=== PATIENT | female | born 1955 | race Caucasian/White ===

== ENCOUNTER 2016-08-02 18:17 | Emergency (ER) | payer MEDICARE ==
[2016-08-02] MEDS ORDERED: Ketorolac INJ* 30 MG/ML 1 ML VIAL IV PUSH ONE (21:42)
[2016-08-02] MEDS ORDERED: LORazepam INJ* 2 MG/ML 1 ML VIAL IV ONE (21:42)
[2016-08-02] MEDS ORDERED: NS 0.9% 1000 ML* 1,000 ML IV ONE (21:42)
--- NOTE | 2016-08-02 22:46 | ED ---
Tanner Lowe Benjamin, scribed for Emre Kapadia MD on 08/02/16 at 2200 . Complex/Multi-Sys Presentation - HPI Summary HPI Summary: 61yo female who has chronic muscle aches from head to toe is here for pain meds. Pt usually takes narcotics for pain, but ran out since . Pt went to her PCP, but PCP refused to rx anymore. Pt has been taking advil since and states that it is not relieving her pain. - History Of Current Complaint Chief Complaint: EDGeneral Time Seen by Provider: 08/02/16 21:36 Hx Obtained From: Patient Onset/Duration: Gradual Onset, Lasting Days, Still Present Timing: Constant Severity Currently: Moderate Severity Initially: Moderate Location: Pain At: - diffuse whole body - Allergies/Home Medications Allergies/Adverse Reactions: Allergies Allergy/AdvReac Type Severity Reaction Status Date / Time Penicillin V Allergy Severe Hives Verified 06/23/15 13:25 [From Penicillin VK Potassium] PMH/Surg Hx/FS Hx/Imm Hx Endocrine/Hematology History: Reports: Hx Anemia Denies: Hx Diabetes, Hx Thyroid Disease Cardiovascular History: Reports: Hx Hypertension, Hx Syncope, Other Cardiovascular Problems/Disorders - CVA Denies: Hx Pacemaker/ICD Respiratory History: Reports: Hx Asthma, Hx Chronic Obstructive Pulmonary Disease (COPD), Other Respiratory Problems/Disorders - ON CONSTANT O2 2.4 LITERS Denies: Hx Lung Cancer GI History: Reports: Hx Gall Bladder Disease, Hx Gastroesophageal Reflux Disease , Other GI Disorders - colitis Denies: Hx Ulcer History: Reports: Hx Acute Renal Failure - stage III, Hx Chronic Renal Failure - CKD 3, Hx Renal Disease - abnormal gfr fluids encouraged Musculoskeletal History: Reports: Hx Arthritis - NECK, HANDS, Hx Back Problems, Hx Osteoporosis, Hx Scoliosis, Other Musculoskeletal History - discs in neck, had sx Denies: Hx Rheumatoid Arthritis Sensory History: Reports: Hx Contacts or Glasses Denies: Hx Hearing Aid Opthamlomology History: Reports: Hx Contacts or Glasses Neurological History: Reports: Hx Migraine, Other Neuro Impairments/Disorders - 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 2 carpal tunnel releases NATY, 1993, 1999, [facility] [place]. 2 disc surgeries, 1991 and 1992, [facility] c5-c6. Vascular legs surgeries; naty, 1998, , [facility] [place]. gallbladder , 1997, [place], neck. Total Hysterectomy at age 36. arthroscopy left knee , 2009, [facility] [place]. Heart Cath. arthroscopic surgery, knees Hx Anesthesia Reactions: No - Immunization History Date of Tetanus Vaccine: Unknown Infectious Disease History: No Infectious Disease History: Denies: Hx Clostridium Difficile, Hx Hepatitis, Hx Human Immunodeficiency Virus (HIV), Hx of Known/Suspected MRSA, Hx Shingles, Hx Tuberculosis, History Other Infectious Disease, Traveled Outside the [place] in Last 30 Days - Family History Known Family History: Positive: None, Other - No hx of breast cancer Family History: NON CONTRIBUTORY - Social History Occupation: Disabled Lives: With Family Alcohol Use: None Substance Use Type: Reports: None Smoking Status (MU): Former Smoker Type: Cigarettes Amount Used/How Often: 33 years Length of Time of Smoking/Using Tobacco: quit 9 years ago Have You Smoked in the Last Year: No Review of Systems Constitutional: Negative Eyes: Negative ENT: Negative Cardiovascular: Negative Respiratory: Negative Gastrointestinal: Negative Genitourinary: Negative Positive: Myalgia - chronic pain Skin: Negative Neurological: Negative Psychological: Normal All Other Systems Reviewed And Are Negative: Yes Physical Exam Triage Information Reviewed: Yes Vital Signs On Initial Exam: Initial Vitals Temp Pulse Resp BP Pulse Ox 98.7 F 109 20 149/107 100 08/02/16 18:20 08/02/16 18:20 08/02/16 18:20 08/02/16 18:20 08/02/16 18:20 Vital Signs Reviewed: Yes Appearance: Positive: Pain Distress - mild discomfort, Thin Skin: Positive: Warm Head/Face: Positive: Normal Head/Face Inspection Eyes: Positive: LEO ENT: Positive: Hearing grossly normal Neck: Positive: Supple Respiratory/Lung Sounds: Positive: Clear to Auscultation, Breath Sounds Present Cardiovascular: Positive: RRR Abdomen Description: Positive: Nontender, Soft Bowel Sounds: Positive: Present Musculoskeletal: Positive: Strength/ROM Intact Neurological: Positive: Sensory/Motor Intact, Alert, Oriented to Person Place, Time Psychiatric: Positive: Affect/Mood Appropriate Diagnostics - Vital Signs Vital Signs Temp Pulse Resp BP Pulse Ox 08/02/16 20:23 98.7 F 98 18 138/83 100 08/02/16 18:24 98.1 F 102 20 149/107 97 08/02/16 18:20 98.7 F 109 20 149/107 100 - Laboratory Result Diagrams: 08/02/16 23:15 08/02/16 23:15 Lab Statement: Any lab studies that have been ordered have been reviewed, and results considered in the medical decision making process. Re-Evaluation - Re-Evaluation First Eval Change: Improved - explained to pt will medicate tonight, d/c pt with 2 percocet , pt needs to f/u with pcp in am Complex Multi-Symp Course/Dx - Diagnoses Provider Diagnoses: Chronic pain Discharge - Discharge Plan Condition: Stable Disposition: HOME Patient Education Materials: Chronic Pain (ED) Referrals: Sheridan Aquino MD [Primary Care Provider] - The documentation as recorded by the Tanner paulino Benjamin accurately reflects the service I personally performed and the decisions made by Steffi anand David, MD.
[2016-08-02 23:32] LABS: Hematocrit 33 % (35-47); Hemoglobin 11.3 g/dl (12.0-16.0); Mean Corpuscular HGB Conc 34 g/dl (31-36); Mean Corpuscular Hemoglobin 31 pg (27-31); Mean Corpuscular Volume 90 fL (80-97); Mean Platelet Volume 8 um3 (7.4-10.4); Red Blood Count 3.66 10^6/ul (4.0-5.4); Red Cell Distribution Width 13 % (10.5-15); White Blood Count 6.1 10^3/ul (3.5-10.8)
[2016-08-02 23:43] LABS: Albumin 4.3 g/dL (3.2-5.2); BUN/Creatinine Ratio 13.4 (8-20); Calcium 9.2 mg/dL (8.6-10.3); EGFR African American 55.2 (>60); EGFR Non-African American 42.9 (>60); Globulin 2.5 g/dL (2-4); Magnesium 1.8 mg/dL (1.9-2.7); Potassium 3.4 mmol/L (3.5-5.0); Total Bilirubin 0.6 mg/dL (0.2-1.0); Total Protein 6.8 g/dL (6.4-8.9)
[2016-08-02] MEDS ORDERED: HYDROmorphone* 1 MG/ML 1 ML SYR IV SLOW PU ONE (23:43)
[2016-08-02] MEDS ORDERED: oxyCODONE/Acetamin 5/325 MG* TAB PO ONE (23:44)
[2016-08-03 00:21] LABS: TSH (Thyroid Stimulating Horm) 1.49 mcIU/mL (0.34-5.60)
[2016-08-03 01:21] VITALS: BP 120/90
== END 2016-08-03 00:30 | disposition home or self-care (01) ==
LOC: ED 18:17
DX: M79.1 Myalgia (principal); G89.29 Other chronic pain; I12.9 Hypertensive chronic kidney disease with stage 1 through stage 4 chronic kidney disease, or unspecified chronic kidney disease; N18.3 Chronic kidney disease, stage 3 (moderate); Z88.0 Allergy status to penicillin; J44.9 Chronic obstructive pulmonary disease, unspecified; Z87.891 Personal history of nicotine dependence
CPT/HCPCS: 36415; 80053; 82550; 83605; 83735; 84443; 85025; 93005; 96360; 96374; 96375; 99283; A9270-GY; J1170; J1885; J2060

== ENCOUNTER → 2016-08-08 09:16 | Emergency (ER) | payer MEDICARE, OTHER ==
[~2016-08-08 09:16] MED LIST: Ketorolac INJ* 60 MG/2 ML VIAL IM ONE; LORazepam TAB(*) 1 MG PO ONE
--- NOTE | 2016-08-08 10:32 | ED ---
Back Pain - HPI Summary HPI Summary: Patient presents with an exacerbation of her chronic back pain that her PCP refused to give her narcotics for and then discharged her from the practice. She previously used oxycontin and fentanyl. She has not obtained a new PCP nor been in contact with a pain clinic. She was seen at this ED on 08/02 and discharged with 2 percocet, which she just used. She denies new injury, change in symptoms or incontinence of urine or stool. - History of Current Complaint Chief Complaint: EDBackInjuryPain Stated Complaint: BACK PAIN Time Seen by Provider: 08/08/16 10:02 Hx Obtained From: Patient Onset/Duration: Gradual Onset, Lasting Weeks, Still Present Onset/Duration: Traumatic - hurt her back in 2000, Still Present Timing: Intermittent, Lasting Days Severity Initially: Severe Severity Currently: Severe Pain Intensity: 10 Character: Sharp, Aching Aggravating Symptom(s): Movement Alleviating Symptom(s): Nothing Associated Signs And Symptoms: Positive: Pain with Weight Bearing Related History: Previous Back Injury - Allergies/Home Medications Allergies/Adverse Reactions: Allergies Allergy/AdvReac Type Severity Reaction Status Date / Time Penicillin V Allergy Severe Hives Verified 06/23/15 13:25 [From Penicillin VK Potassium] PMH/Surg Hx/FS Hx/Imm Hx Endocrine/Hematology History: Reports: Hx Anemia Denies: Hx Diabetes, Hx Thyroid Disease Cardiovascular History: Reports: Hx Hypertension, Hx Syncope, Other Cardiovascular Problems/Disorders - CVA Denies: Hx Pacemaker/ICD Respiratory History: Reports: Hx Asthma, Hx Chronic Obstructive Pulmonary Disease (COPD), Other Respiratory Problems/Disorders - ON CONSTANT O2 2.4 LITERS Denies: Hx Lung Cancer GI History: Reports: Hx Gall Bladder Disease, Hx Gastroesophageal Reflux Disease , Other GI Disorders - colitis Denies: Hx Ulcer History: Reports: Hx Acute Renal Failure - stage III, Hx Chronic Renal Failure - CKD 3, Hx Renal Disease - abnormal gfr fluids encouraged Musculoskeletal History: Reports: Hx Arthritis - NECK, HANDS, Hx Back Problems, Hx Osteoporosis, Hx Scoliosis, Other Musculoskeletal History - discs in neck, had sx Denies: Hx Rheumatoid Arthritis Sensory History: Reports: Hx Contacts or Glasses Denies: Hx Hearing Aid Opthamlomology History: Reports: Hx Contacts or Glasses Neurological History: Reports: Hx Migraine, Other Neuro Impairments/Disorders - 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 2 carpal tunnel releases NATY, 1993, 1999, [facility] [place]. 2 disc surgeries, 1991 and 1992, [facility] c5-c6. Vascular legs surgeries; anty, 1998, , [facility] [place]. gallbladder , 1997, [place], neck. Total Hysterectomy at age 36. arthroscopy left knee , 2009, [facility] [place]. Heart Cath. arthroscopic surgery, knees Hx Anesthesia Reactions: No - Immunization History Date of Tetanus Vaccine: Unknown Infectious Disease History: Denies: Hx Clostridium Difficile, Hx Hepatitis, Hx Human Immunodeficiency Virus (HIV), Hx of Known/Suspected MRSA, Hx Shingles, Hx Tuberculosis, History Other Infectious Disease, Traveled Outside the [place] in Last 30 Days - Family History Known Family History: Positive: None, Other - No hx of breast cancer Family History: NON CONTRIBUTORY - Social History Occupation: Unemployed Lives: With Family Alcohol Use: None Substance Use Type: Reports: None Substance Use Comment - Amount & Last Used: Fentanyl patch and oxycodone Smoking Status (MU): Former Smoker Type: Cigarettes Amount Used/How Often: 33 years Length of Time of Smoking/Using Tobacco: quit 9 years ago Have You Smoked in the Last Year: No Review of Systems Negative: Fever, Chills Positive: Myalgia. Negative: Decreased ROM, Edema Negative: Weakness, Paresthesia, Numbness All Other Systems Reviewed And Are Negative: Yes Physical Exam Triage Information Reviewed: Yes Vital Signs On Initial Exam: Initial Vitals Pulse Resp BP Pulse Ox 57 20 121/93 97 08/08/16 09:17 08/08/16 09:17 08/08/16 09:17 08/08/16 09:17 Vital Signs Reviewed: Yes Appearance: Positive: Well-Appearing, Well-Nourished, Pain Distress Skin: Positive: Warm, Skin Color Reflects Adequate Perfusion, Dry, Soft Head/Face: Positive: Normal Head/Face Inspection Eyes: Positive: EOMI, LEO, Conjunctiva Clear ENT: Positive: Hearing grossly normal Respiratory/Lung Sounds: Positive: Breath Sounds Present Cardiovascular: Positive: RRR Musculoskeletal: Positive: Limited @ - +SLR bilaterally, Pain @ - TTP bilateral SI joints Neurological: Positive: Sensory/Motor Intact, Alert, Oriented to Person Place, Time, NV Bundle Intact Distally, Abnormal Gait Psychiatric: Positive: Affect/Mood Appropriate AVPU Assessment: Alert Diagnostics - Vital Signs Vital Signs Pulse Resp BP Pulse Ox 08/08/16 09:17 57 20 121/93 97 - Laboratory Lab Statement: Any lab studies that have been ordered have been reviewed, and results considered in the medical decision making process. Back Pain Course/Dx - Diagnoses Differential Diagnosis/HQI/PQRI: Positive: Arthritis, Cauda Equina Syndrome, Fracture, Herniated Disc, Strain, Sprain Provider Diagnoses: Acute exacerbation of chronic low back pain Discharge - Discharge Plan Condition: Stable Disposition: HOME Patient Education Materials: Chronic Back Pain (ED), Lower Back Exercises (ED) Referrals: Sheridan Aquino MD [Primary Care Provider] - [facility] [place] [facility]ICIAN REFERRAL [Outside] Additional Instructions: Please call the number provided to establish care with a new provider. Continue using ibuprofen and/or Tylenol with heat or ice for pain. Continue to try to contact the pain clinic for further management of your chronic pain.
[2016-08-08 11:06] VITALS: BP 121/87
== END | disposition home or self-care (01) ==
LOC: ED 09:16
DX: M54.5 Low back pain (principal); G89.29 Other chronic pain; Z87.891 Personal history of nicotine dependence; J44.9 Chronic obstructive pulmonary disease, unspecified; Z88.0 Allergy status to penicillin; I12.9 Hypertensive chronic kidney disease with stage 1 through stage 4 chronic kidney disease, or unspecified chronic kidney disease; N18.3 Chronic kidney disease, stage 3 (moderate)
CPT/HCPCS: 99282; A9270-GY; J1885

== ENCOUNTER 2016-08-12 17:10 | Inpatient (IN) | payer MEDICARE ==
[2016-08-12] MEDS ORDERED: NS 0.9% 1000 ML* 1,000 ML IV ONE (17:45)
[2016-08-12 18:08] LABS: Hematocrit 34 % (35-47); Hemoglobin 11.8 g/dl (12.0-16.0); Mean Corpuscular HGB Conc 35 g/dl (31-36); Mean Corpuscular Hemoglobin 31 pg (27-31); Mean Corpuscular Volume 90 fL (80-97); Mean Platelet Volume 8 um3 (7.4-10.4); Red Blood Count 3.81 10^6/ul (4.0-5.4); Red Cell Distribution Width 13 % (10.5-15); White Blood Count 6.6 10^3/ul (3.5-10.8)
[2016-08-12 18:22] LABS: ALT 10 U/L (7-52); AST 19 U/L (13-39); Albumin 4.2 g/dL (3.2-5.2); Alkaline Phosphatase 60 U/L (34-104); Anion Gap 7 mmol/L (2-11); BUN/Creatinine Ratio 12.6 (8-20); Blood Urea Nitrogen 14 mg/dL (6-24); C Reactive Protein < 1.00 mg/L (< 5.00); CO2 Carbon Dioxide 25 mmol/L (22-32); Calcium 9.6 mg/dL (8.6-10.3); Chloride 97 mmol/L (101-111); Creatine Kinase 64 U/L (10-223); EGFR African American 64.5 (>60); EGFR Non-African American 50.1 (>60); Globulin 2.4 g/dL (2-4); Glucose 90 mg/dL (70-100); Lipase 32 U/L (11.0-82.0); Magnesium 1.7 mg/dL (1.9-2.7); Sodium 129 mmol/L (133-145); Total Protein 6.6 g/dL (6.4-8.9)
--- NOTE | 2016-08-12 18:34 | RAD ---
Indication: Facial numbness.. CT of the brain was performed without IV contrast. Comparison is made with previous exam dated July 16, 2015. Ventricular structures are midline. No midline shift is noted. The extra-axial spaces are unremarkable. There is no evidence of intracranial mass or hemorrhage. No other high or low density lesions are identified. Mastoid air cells and paranasal sinuses are unremarkable. IMPRESSION: No intracranial mass or hemorrhage is noted.
[2016-08-12] MEDS ORDERED: Magnesium Sulfate 2 GM IV* 2 GM/50 ML BAG IVPB ONE (18:36)
[2016-08-12 18:42] LABS: Acetaminophen < 15 mcg/mL; Alcohol < 10 mg/dL (<10); Salicylate < 2.50 mg/dL (<30)
--- NOTE | 2016-08-12 18:44 | RAD ---
Indication: Left facial numbness, left arm pain. CT of the cervical spine was obtained in the axial plane. Sagittal and coronal reconstructed images were obtained. Mastoid air cells are unremarkable. Degenerative changes of the atlantoaxial joint is noted. The C1 ring is intact. 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 Lucent areas are noted at the C5 and C6 vertebra of uncertain etiology. There is no evidence of fracture noted. Disc spaces all well-preserved. The lung apices are grossly unremarkable. IMPRESSION: Focal osteopenia in the cervical spine without fracture. Failure of segmentation of C5-C6. Degenerative changes of the atlantoaxial joint is present.
[2016-08-12] MEDS ORDERED: NS 0.9% 1000 ML* 1,000 ML IV SCH (19:45)
[2016-08-12] MEDS ORDERED: Iodixanol* (CONTRAST) 320 MG/ML 100 ML SDV IV ONE (19:54)
[2016-08-12 19:59] LABS: Urine Bilirubin Negative (Negative); Urine Glucose Negative (Negative); Urine Nitrite Negative (Negative)
[2016-08-12 20:12] LABS: Benzodiazepine Urine Screen Presumptive Positive (None Detect)
--- NOTE | 2016-08-12 20:37 | RAD ---
Indication: Left face and arm numbness. Contrast: Administered 80.0 ml of VISAPAQUE 320 mgi/ml CTA of the neck and head was performed after IV contrast administration. Coronal and sagittal reconstructed images were obtained. The origins of the great vessels are unremarkable. No evidence of calcific plaque with stenosis is noted. Aortic arch is otherwise unremarkable. The right and left common carotid arteries demonstrates no intimal wall thickening. No definite evidence of plaque or calcifications are noted at the origins of the internal carotid artery. No evidence of carotid artery dissection is noted. Both vertebral arteries are widely patent. CTA of the head demonstrates normal intracranial carotid arteries with no branch occlusion. Anterior and middle cerebral arteries are unremarkable with no evidence of aneurysmal dilatation or branch occlusion. Basilar artery and posterior cerebral arteries are unremarkable without evidence of branch occlusion or aneurysmal dilatation. IMPRESSION: No evidence of carotid artery dissection or aneurysmal dilatation is noted. Intracranial vessels demonstrates no aneurysmal dilatation or branch occlusion.
[2016-08-12] MEDS ORDERED: Amitriptyline TAB* 25 MG PO PRN (21:03)
[2016-08-12] MEDS ORDERED: Acetaminophen TAB* 325 MG ONE (21:07)
[2016-08-12] MEDS: Acetaminophen TAB* 325 MG PO PRN (21:08)
[2016-08-12] MEDS: Heparin VIAL(*) 5000 UNITS/ML VIAL (FIVE THOUSAND) SUBCUT SCH (22:27)
[2016-08-12] MEDS: Cyclobenzaprine TAB* 10 MG PO PRN (23:17)
[2016-08-13] MEDS: Acetaminophen TAB* 325 MG PO PRN ×2 (03:38→23:20)
--- NOTE | 2016-08-13 04:57 | HP ---
HOSPITAL MEDICINE HISTORY AND PHYSICAL: DATE OF ADMISSION: 08/12/16 PRIMARY CARE PHYSICIAN: None. ATTENDING PHYSICIAN: Dr. Angus Erwin* (dictation provided by Koki Harman NP) CHIEF COMPLAINT: Left-sided facial numbness and arm weakness. HISTORY OF PRESENT ILLNESS: Ms. King Calderon is a 61-year-old female with a past medical history of hypertension; CKD, stage 3; COPD, on 2 L nasal cannula; chronic orthostatic hypotension; chronic pain, who presents today to the hospital with concern for left-sided facial and left upper arm numbness. Ms. King Calderon states that she has had a very harrowing recent 3 weeks. She normally follows with Dr. Aquino for her primary care. She reports that she normally wears a 50 mcg fentanyl patch, but had an old 100 mcg patch, which she had cut into half thinking that that would be appropriate. Per her report, Dr. Aquino saw the fentanyl patch and was concerned that she was using her medications inappropriately. Apparently, at the same time, she has got a letter in the mail from [employer] saying she should be weaned from all narcotics. Dr. Aquino at that time did not feel comfortable continuing to see her as a patient and she is no longer with that practice. She is therefore no longer receiving prescriptions for pain medications. She has been working to try to find a new primary care physician in [facility], but due to this history, she has found that difficult. She states her last narcotic usage was 2 weeks ago. She has had a difficult withdrawal period, as she has been on narcotics since at least 2000. She reports that yesterday, she developed numbness in her left upper arm and shoulder. This morning on awakening, she had numbness in her left face and therefore, decided to come to the emergency room. She denies weakness, vision changes, or speech abnormality. She denies any fevers or chills. She has had nausea. She has had sweating related to her narcotic withdrawal. She has had no chest pain, no shortness of breath. Some diarrhea. She has been eating and drinking well. Her mother has been helping to care for her. In the emergency room, Ms. King Calderon had labs that were unremarkable. She had CT brain, which showed no acute abnormality. She had a cervical spine CT, which showed no acute abnormality. Head CTA, neck was also normal. PAST MEDICAL HISTORY: 1. Hypertension. 2. CKD, stage 3. 3. Hyperlipidemia. 4. COPD, on 2 L nasal cannula. 5. Chronic hyponatremia. 6. Chronic anemia. 7. History of a cardiac arrest. 8. Depression. 9. Chronic pain, currently off narcotics. 10. Chronic orthostatic hypotension. PAST SURGICAL HISTORY: 1. History of 2 neck surgeries in . 2. Laminectomy at C5-C6 and repair of that initial surgery due to complications afterwards. MEDICATIONS: As follows: 1. Acidophilus 100 mg p.o. daily. 2. Aspirin 81 mg p.o. daily. 3. Alprazolam 0.25 mg p.o. b.i.d. 4. Amitriptyline 75 mg oral daily p.r.n. 5. Calcium 600 mg oral daily. 6. Cholecalciferol 5000 units oral daily. 7. CVS Iron 1 tab oral daily. 8. Cyclobenzaprine ER 10 mg t.i.d. p.r.n. 9. Furosemide 40 mg oral daily. 10. Gabapentin 400 mg p.o. t.i.d. 11. Klor-Con 20 mEq daily. 12. Lipitor 20 mg daily. 13. Magnesium 400 mg oral daily. 14. Metoprolol tartrate 75 mg daily. 15. Omeprazole 40 mg daily. 16. Oxygen as needed at 2 L. 17. Plavix 75 mg daily. 18. ProAir as needed. 19. Vitamin B12 one tab oral daily. 20. Vitamin C 1 tab oral b.i.d. ALLERGIES: To PENICILLIN. FAMILY HISTORY: The patient reports her mother is alive and well. She is in the room today. Father related to colon cancer. SOCIAL HISTORY: The patient is a former smoker. She quit about 9 years ago. There is no report of alcohol use or drug use. The patient lives with her son and he would be the healthcare proxy; his name is Jossue Clayton. REVIEW OF SYSTEMS: A 14-point review of systems was completed with Ms. King Calderon and all those not mentioned above were negative. PHYSICAL EXAMINATION GENERAL: Ms. King Calderon is sitting in the bed. She is in no acute distress. She is calm and cooperative with my examination. VITAL SIGNS: Temperature 98, heart rate 92, respiratory rate 19, O2 saturation 99% on room air, blood pressure 153/90. LUNGS: Clear to auscultation bilaterally with no accessory muscle use and good aeration. HEART: S1, S2. No murmur, rub, or gallop, and regular. ABDOMEN: Soft, nontender with bowel sounds positive x4. NEURO: She has a resting tremor, which she states is somewhat worse than usual. She moves all extremities equally. There is no facial asymmetry or focal weakness. Extraocular movements are intact. She has no pronator drift. She reports decreased sensation to the left face. She feels a tightening around her left biceps, but she has good strength on the arm there and with that muscle. Speech is clear. EXTREMITIES: No cyanosis or edema. SKIN: Intact. DIAGNOSTIC STUDIES/LAB DATA: Sodium 129, potassium 4.0, chloride 97, serum bicarbonate 25, BUN 14, creatinine 1.11, glucose 90. CRP less than 1. WBC 6.6 , hemoglobin 11.8, hematocrit 34, and platelet count 247. INR 0.86. Urine shows no evidence of infection. Tox screen is positive for benzodiazepines. CT brain is read as follows: No intracranial mass or hemorrhage is noted. Cervical spine CT is read as follows: Focal osteopenia in the cervical spine without fracture, failure of segmentation of C5-C6, degenerative changes of the atlantoaxial joint is present. Head CT is as follows: No evidence of carotid artery dissection or aneurysmal dilatation is noted. ASSESSMENT AND PLAN: Ms. King Calderon is a 61-year-old female with a significant past medical history for hypertension; chronic kidney disease, stage 3; hyperlipidemia; chronic obstructive pulmonary disease, on 2 L nasal cannula, who presents today to the hospital with concern for left-sided facial and left upper arm numbness. Plans are for admission to the hospital with expected length of stay greater than 2 days for the followin. Left-sided facial weakness: The patient's symptoms are concerning for a cerebrovascular accident. She has had a CTof the brain and CTA of the head and neck, which have been negative. MRI has been ordered, but will not be available until Sunday. In terms of risk factors, the patient does have hypertension and hyperlipidemia as well as history of smoking. She is already on Plavix. If it is determined that she has had a stroke, will likely need to switch to an alternate agent, but we will await the results of MRI and consultation with Neurology. 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 The patient had her last transthoracic echocardiogram in 2016 with no evidence of patent foramen ovale. I do not think this needs to be repeated. 2. Hypertension. Continue metoprolol, furosemide. 3. DVT prophylaxis. With heparin subcu. 4. Chronic obstructive pulmonary disease. Continue home medications. 5. Hyperlipidemia. Continue Lipitor. 6. History of questionable transient ischemic attack. Continue Plavix. 7. History of anxiety. Continue alprazolam. 8. Chronic pain. Continue gabapentin, cyclobenzaprine. 9. Code status is full code. KOKI HARMAN, [place] [id number]/CPS #: [id number] JAQUELIN
--- NOTE | 2016-08-13 05:06 | CONS ---
CC: Dr. Sheridan Aquino NEUROLOGY CONSULT: DATE OF CONSULTATION: 08/12/16 PRIMARY CARE PHYSICIAN: Dr. Sheridan Aquino REQUESTING PROVIDER: Dr. Cisneros in the ED. REASON FOR CONSULT: Left-sided numbness, rule out stroke. HISTORY OF PRESENT ILLNESS: The patient is a 61-year-old right-handed female who presented to the ED with a complaint of feeling numbness in the arm and face since start of early this morning. When the patient shows me the distribution of numbness in the face, it is more in the lower part of her face ( probably along the V2 distribution). The patient had a complaint of feeling "heavy" in the legs in the past few weeks however. The patient denies any other associated symptoms such as weakness. There is no report of diplopia, dysarthria or dysphagia. The patient has been using narcotics since 2000 for her back pain, including fentanyl patch. Eventually, she came off her narcotics, the last dose was about 2 weeks ago; she had some hard withdrawal symptoms, however, they subsided. PAST MEDICAL HISTORY: 1. History of cardiopulmonary arrest in the past. 2. Orthostatic hypotension and syncope. 3. Hypertension. 4. Chronic kidney disease. 5. Hyperlipidemia. 6. COPD. 7. Chronic normocytic anemia. 8. Migraine headaches. 9. Chronic low back pain. 10. Depression. 11. Fibromyalgia. PAST SURGICAL HISTORY: 1. History of cervical and lumbar spine surgery. 2. Cholecystectomy. 3. x2. 4. Hysterectomy. HOME MEDICATIONS: Include: 1. Potassium 20 mEq p.o. daily. 2. Omeprazole 40 mg p.o. daily. 3. Metoprolol 75 mg p.o. at bedtime. 4. Magnesium 400 mg p.o. daily. 5. Gabapentin 400 mg p.o. b.i.d. 6. Furosemide 40 mg p.o. daily. 7. Ferrous sulfate 325 mg p.o. daily. 8. Flexeril 10 mg p.o. t.i.d. 9. Vitamin B12 500 mcg p.o. daily. 10. Plavix 75 mg p.o. daily. 11. Vitamin D 5000 units p.o. daily. 12. Calcium 600 mg p.o. daily. 13. Lipitor 20 mg p.o. daily. 14. Aspirin low dose 81 mg p.o. daily. 15. Vitamin C. 16. Elavil p.r.n. 17. Albuterol. 18. Xanax 0.25 mg p.o. daily. ALLERGIES: PENICILLIN. FAMILY HISTORY: No clear neurological history in the family. Father passed aways of colon cancer. Mother is relatively healthy. SOCIAL HISTORY: Quit smoking about 8 to 9 years ago. No history of alcohol or recreational drug use. Currently, leaves with his son. PHYSICAL EXAMINATION: Blood pressure 153/97, pulse rate 92, respiratory rate 18 , temperature 98.6, O2 sat 100% on room air. The patient is awake, alert, and oriented x3. Lungs are clear to auscultation. Heart has a regular rate and rhythm. Abdomen is soft and nontender. On neurological exam, the patient is awake, alert, and oriented x3. She has a mild orofacial tremor. The speech is fluent, sometimes with some hesitancy, but she says this is her baseline. Pupils are symmetric and reactive to light. Extraocular movements are intact. Face is symmetric. V1 to V3 is intact to light touch and pinprick bilaterally. Strength is 5/5 throughout. There is no pronator drift. On sensory exam, there is decreased sensation to pinprick in the left arm and leg, but not to light touch. Vibration is decreased bilaterally in the lower extremities. Ccykma-vb-ninm is intact on the right side and slightly has action tremor in the left side with no clear dysmetria; however, she says she has some pain in the left arm as well. Rapid alternating movements are intact. Deep tendon reflexes are 2+ in the upper and lower extremities and are symmetric. Babinski sign is negative. LABORATORY DATA: WBC 6.6, hemoglobin 11.8, hematocrit 34, platelets 247. INR 0.86. Sodium 129, chloride 97, creatinine 1.11, magnesium 1.7. IMAGING: CTA of the head, no evidence of carotid artery dissection or aneurysm. Cervical Spine CT: Focal osteopenia in the cervical spine without fracture. 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 Degenerative changes of atlantoaxial joint is present. Brain CT: No intracranial mass or hemorrhage is noted. ASSESSMENT AND PLAN: A 61-year-old female with vascular risk factors, presented with numbness in the left arm and leg and in the lower part of her face. On physical exam, there is decreased sensation to pinprick in the left arm and leg, but not face. Because of this sudden onset of tingling and numbness in the left arm and face, a stroke needs to be ruled out. She is not a candidate for thrombolytic therapy because she is out of the window and even if she was, her NIH stroke scale is 1 and is not a candidate. Continue aspirin. We will obtain an MRI of the brain and CT angiogram of the head and neck along with a echo of the heart. Other differentials, given that distribution of her subjective numbness in the left arm is lower part of the face, along with her arm complaints, is cervical radiculopathy and degenerative changes. [id number]/[facility] #: [id number] JAQUELIN
[2016-08-13] MEDS: Heparin VIAL(*) 5000 UNITS/ML VIAL (FIVE THOUSAND) SUBCUT SCH ×3 (05:14→20:31)
[2016-08-13] MEDS: ALPRAZolam TAB* 0.25 MG PO SCH (08:40)
[2016-08-13] MEDS: Ascorbic Acid TAB* 500 MG PO SCH (08:40)
[2016-08-13] MEDS: Cyclobenzaprine TAB* 10 MG PO PRN ×2 (08:40→20:29)
[2016-08-13] MEDS: Furosemide TAB* 40 MG PO SCH (08:41)
[2016-08-13] MEDS: Cholecalciferol TAB* 1000 UNITS PO SCH (08:41)
[2016-08-13] MEDS: Gabapentin CAP(*) 400 MG PO SCH ×3 (08:41→20:27)
[2016-08-13] MEDS: Aspirin EC Low Dose* 81 MG TAB.EC PO SCH (08:41)
[2016-08-13] MEDS: Cyanocobalamin TAB* 500 MCG PO SCH (08:41)
[2016-08-13] MEDS: Ferrous Sulfate TAB* 325 MG PO SCH (08:41)
[2016-08-13] MEDS: Clopidogrel TAB* 75 MG PO SCH (08:41)
[2016-08-13] MEDS: Potassium Chlor TAB* 20 MEQ TAB.ER PO SCH (08:42)
[2016-08-13] MEDS: Pantoprazole TAB (NF) 40 MG TAB PO SCH (08:42)
[2016-08-13] MEDS: Magnesium Oxide TAB* 400 MG PO SCH (08:42)
[2016-08-13 09:55] LABS: HDL Cholesterol 44.6 mg/dL
--- NOTE | 2016-08-13 11:00 | PN ---
Progress Note - Progress Note SOAP: Neurology progress note Date of service: 08/13/16 Subjective: No acute events overnight. Patient's symptoms have remained unchanged compared to yesterday. Objective: Vital Signs Temp Pulse Resp BP Pulse Ox 98.8 F 106 18 151/92 99 08/13/16 07:29 08/13/16 07:29 08/13/16 08:41 08/13/16 07:29 08/13/16 07:29 Current Medications Acetaminophen (Tylenol Tab*) 650 mg PO Q6H PRN PRN Reason: PAIN Last Admin: 08/13/16 03:38 Dose: 650 mg Alprazolam (Xanax Tab*) 0.25 mg PO DAILY [facility] Last Admin: 08/13/16 08:40 Dose: 0.25 mg Amitriptyline HCl (Elavil Tab*) 75 mg PO BEDTIME PRN PRN Reason: MD DISCRETION Ascorbic Acid (Vitamin C Tab*) 1,000 mg PO DAILY [facility] Last Admin: 08/13/16 08:40 Dose: 1,000 mg Aspirin (Aspirin Ec Low Dose*) 81 mg PO DAILY [facility] Last Admin: 08/13/16 08:41 Dose: 81 mg Atorvastatin Calcium (Lipitor*) 20 mg PO QPM [facility] Cholecalciferol (Vitamin D Tab*) 5,000 units PO DAILY [facility] Last Admin: 08/13/16 08:41 Dose: 5,000 units Clopidogrel Bisulfate (Plavix Tab*) 75 mg PO DAILY [facility] Last Admin: 08/13/16 08:41 Dose: 75 mg Cyanocobalamin (Vitamin B12 Tab*) 500 mcg PO DAILY [facility] Last Admin: 08/13/16 08:41 Dose: 500 mcg Cyclobenzaprine HCl (Flexeril Tab*) 10 mg PO TID PRN PRN Reason: SPASMS Last Admin: 08/13/16 08:40 Dose: 10 mg Ferrous Sulfate (Ferrous Sulfate Tab*) 325 mg PO DAILY [facility] Last Admin: 08/13/16 08:41 Dose: 325 mg Furosemide (Lasix Tab*) 40 mg PO DAILY [facility] Last Admin: 08/13/16 08:41 Dose: 40 mg Gabapentin (Neurontin Cap(*)) 400 mg PO TID [facility] Last Admin: 08/13/16 08:41 Dose: 400 mg Heparin Sodium (Porcine) (Heparin Vial(*)) 5,000 units SUBCUT Q8HR [facility] Last Admin: 08/13/16 05:14 Dose: 5,000 units Magnesium Oxide (Magox 400 Tab*) 400 mg PO DAILY [facility] Last Admin: 08/13/16 08:42 Dose: 400 mg Metoprolol Tartrate (Lopressor Tab*) 75 mg PO BEDTIME [facility] Pantoprazole Sodium (Protonix Tab (Nf)) 80 mg PO DAILY [facility] Last Admin: 08/13/16 08:42 Dose: 80 mg Potassium Chloride (Klor Con Er Tab*) 20 meq PO DAILY [facility] Last Admin: 08/13/16 08:42 Dose: 20 meq Laboratory Results - last 24 hr 08/12/16 08/12/16 08/12/16 18:00 18:00 18:00 WBC 6.6 RBC 3.81 L Hgb 11.8 L Hct 34 L MCV 90 MCH 31 MCHC 35 RDW 13 Plt Count 247 MPV 8 Neut % (Auto) 73.4 Lymph % (Auto) 17.0 L Stafford % (Auto) 5.5 Eos % (Auto) 1.6 Baso % (Auto) 2.5 H Absolute Neuts (auto) 4.8 Absolute Lymphs (auto) 1.1 Absolute Monos (auto) 0.4 Absolute Eos (auto) 0.1 Absolute Basos (auto) 0.2 Absolute Nucleated RBC 0 Nucleated RBC % 0 INR (Anticoag Therapy) 0.86 L APTT 28.9 Sodium 129 L Potassium 4.0 Chloride 97 L Carbon Dioxide 25 Anion Gap 7 BUN 14 Creatinine 1.11 H Est GFR ( Amer) 64.5 Est GFR (Non-Af Amer) 50.1 BUN/Creatinine Ratio 12.6 Glucose 90 Lactic Acid Calcium 9.6 Magnesium 1.7 L Total Bilirubin 0.50 AST 19 ALT 10 Alkaline Phosphatase 60 Total Creatine Kinase 64 CK-MB (CK-2) 1.2 C-Reactive Protein < 1.00 Total Protein 6.6 Albumin 4.2 Globulin 2.4 Albumin/Globulin Ratio 1.8 Triglycerides Cholesterol LDL Cholesterol HDL Cholesterol Lipase 32 Urine Color Urine Appearance Urine pH Ur Specific [place] Urine Protein Urine Ketones Urine Blood Urine Nitrate Urine Bilirubin Urine Urobilinogen Ur Leukocyte Esterase Urine Glucose Urine Ascorbic Acid Salicylates < 2.50 Urine Opiates Screen Acetaminophen < 15 Ur Barbiturates Screen Ur Phencyclidine Scrn Ur Amphetamines Screen U Benzodiazepines Scrn Urine Cocaine Screen U Cannabinoids Screen Serum Alcohol < 10 08/12/16 08/12/16 08/12/16 18:00 19:46 19:46 WBC RBC Hgb Hct MCV MCH MCHC RDW Plt Count MPV Neut % (Auto) Lymph % (Auto) Stafford % (Auto) Eos % (Auto) Baso % (Auto) Absolute Neuts (auto) Absolute Lymphs (auto) Absolute Monos (auto) Absolute Eos (auto) Absolute Basos (auto) Absolute Nucleated RBC Nucleated RBC % INR (Anticoag Therapy) APTT Sodium Potassium Chloride Carbon Dioxide Anion Gap BUN Creatinine Est GFR ( Amer) Est GFR (Non-Af Amer) BUN/Creatinine Ratio Glucose Lactic Acid 0.5 Calcium Magnesium Total Bilirubin AST ALT Alkaline Phosphatase Total Creatine Kinase CK-MB (CK-2) C-Reactive Protein Total Protein Albumin Globulin Albumin/Globulin Ratio Triglycerides Cholesterol LDL Cholesterol HDL Cholesterol Lipase Urine Color Straw Urine Appearance Clear Urine pH 7.0 Ur Specific [place] 1.008 L Urine Protein Negative Urine Ketones Negative Urine Blood Negative Urine Nitrate Negative Urine Bilirubin Negative Urine Urobilinogen Negative Ur Leukocyte Esterase Negative Urine Glucose Negative Urine Ascorbic Acid * H Salicylates Urine Opiates Screen None detected Acetaminophen Ur Barbiturates Screen None detected Ur Phencyclidine Scrn None detected Ur Amphetamines Screen None detected U Benzodiazepines Scrn Presumptive positive H Urine Cocaine Screen None detected U Cannabinoids Screen None detected Serum Alcohol 08/13/16 07:48 WBC RBC Hgb Hct MCV MCH MCHC RDW Plt Count MPV Neut % (Auto) Lymph % (Auto) [place] % (Auto) Eos % (Auto) Baso % (Auto) Absolute Neuts (auto) Absolute Lymphs (auto) Absolute Monos (auto) Absolute Eos (auto) Absolute Basos (auto) Absolute Nucleated RBC Nucleated RBC % INR (Anticoag Therapy) APTT Sodium Potassium Chloride Carbon Dioxide Anion Gap BUN Creatinine Est GFR ( Amer) Est GFR (Non-Af Amer) BUN/Creatinine Ratio Glucose Lactic Acid Calcium Magnesium Total Bilirubin AST ALT Alkaline Phosphatase Total Creatine Kinase CK-MB (CK-2) C-Reactive Protein Total Protein Albumin Globulin Albumin/Globulin Ratio Triglycerides 150 Cholesterol 187 LDL Cholesterol 112 HDL Cholesterol 44.6 Lipase Urine Color Urine Appearance Urine pH Ur Specific [place] Urine Protein Urine Ketones Urine Blood Urine Nitrate Urine Bilirubin Urine Urobilinogen Ur Leukocyte Esterase Urine Glucose Urine Ascorbic Acid Salicylates Urine Opiates Screen Acetaminophen Ur Barbiturates Screen Ur Phencyclidine Scrn Ur Amphetamines Screen U Benzodiazepines Scrn Urine Cocaine Screen U Cannabinoids Screen Serum Alcohol Exam is unchanged, with some decreased sensation to pinprick in the left arm and leg, but not face. Otherwise, no other focal neurological finding. Assessment and Plan: 61-year-old female, presented with acute numbness (and pain) of the left arm, face and leg. Stroke workup in progress; awaiting MRI, although the symptoms also could be related to radiculopathy and degenerative changes in the cervical spine. Continue ASA.
--- NOTE | 2016-08-13 11:06 | PN ---
Subjective Date of Service: 08/13/16 Interval History: Ms King Calderon continues to reports some intermittent sensations of numbness of her left face, neck, and upper arm. She also reports tingling in her lips. She denies other complaint including nausea, abdominal pain, chest pain, or SOB. Objective Active Medications: Acetaminophen (Tylenol Tab*) 650 mg PO Q6H PRN Alprazolam (Xanax Tab*) 0.25 mg PO DAILY [facility] Amitriptyline HCl (Elavil Tab*) 75 mg PO BEDTIME PRN Ascorbic Acid (Vitamin C Tab*) 1,000 mg PO DAILY [facility] Aspirin (Aspirin Ec Low Dose*) 81 mg PO DAILY [facility] Atorvastatin Calcium (Lipitor*) 20 mg PO QPM [facility] Cholecalciferol (Vitamin D Tab*) 5,000 units PO DAILY [facility] Clopidogrel Bisulfate (Plavix Tab*) 75 mg PO DAILY [facility] Cyanocobalamin (Vitamin B12 Tab*) 500 mcg PO DAILY [facility] Cyclobenzaprine HCl (Flexeril Tab*) 10 mg PO TID PRN Ferrous Sulfate (Ferrous Sulfate Tab*) 325 mg PO DAILY [facility] Furosemide (Lasix Tab*) 40 mg PO DAILY [facility] Gabapentin (Neurontin Cap(*)) 400 mg PO TID [facility] Heparin Sodium (Porcine) (Heparin Vial(*)) 5,000 units SUBCUT Q8HR [facility] Magnesium Oxide (Magox 400 Tab*) 400 mg PO DAILY [facility] Metoprolol Tartrate (Lopressor Tab*) 75 mg PO BEDTIME [facility] Pantoprazole Sodium (Protonix Tab (Nf)) 80 mg PO DAILY [facility] Potassium Chloride (Klor Con Er Tab*) 20 meq PO DAILY [facility] Vital Signs 08/12/16 08/12/16 08/13/16 21:44 23:17 00:27 Temperature 98.6 F 98.4 F Pulse Rate 92 95 Respiratory 18 16 20 Rate Blood Pressure 153/97 139/68 (mmHg) O2 Sat by Pulse 100 99 Oximetry 08/13/16 08/13/16 08/13/16 01:17 03:47 07:21 Temperature 97.7 F Pulse Rate 93 Respiratory 18 20 16 Rate Blood Pressure 158/85 (mmHg) O2 Sat by Pulse 100 Oximetry 08/13/16 08/13/16 08/13/16 07:29 08:40 08:41 Temperature 98.8 F Pulse Rate 106 Respiratory 18 18 Rate Blood Pressure 151/92 (mmHg) O2 Sat by Pulse 99 Oximetry Oxygen Devices in Use Now: None Appearance: Female lying in bed in NAD Eyes: No Scleral Icterus Ears/Nose/Mouth/Throat: Mucous Membranes Moist Neck: NL Appearance and Movements; NL JVP Respiratory: Symmetrical Chest Expansion and Respiratory Effort, Clear to Auscultation Cardiovascular: NL Sounds; No Murmurs; No JVD, No Edema Abdominal: NL Sounds; No Tenderness; No Distention Lymphatic: No Cervical Adenopathy Extremities: No Edema Skin: No Rash or Ulcers Neurological: Alert and Oriented x 3, NL Muscle Strength and Tone, - - decreased sensation to left neck only Nutrition: Taking PO's Result Diagrams: 08/12/16 18:00 08/12/16 18:00 Assess/Plan/Problems-Billing Assessment: Ms. King Calderon is a 61 yo female with a PMH of chronic pain recently taken off all narcotics, htn, COPD on 2L NC, who was admitted on 08/12/16 with concern for left sided face and arm numbness. - Patient Problems (1) Left sided numbness Comment: Intermittent L sided face, neck, and upper arm numbness. CT brain and cervical spine negative. Appreciate consulation from Dr. Salcedo. Recommends MRI head and c spine. Patient had recent echo back in 2016 without evidence of PFO, no indication for repeat at this time. ? if some of symptoms are related anxiety, especially with circumoral tingling. (2) CVA (cerebral vascular accident) Comment: Patient reports question of CVA over 10 years ago, though not confirmed on imaging per patient report. Continue plavix and aspirin. (3) CKD (chronic kidney disease) Comment: Stage 3. At baseline. (4) Chronic pain Comment: Patient had issue with Dr. Aquino with concern for inappropriate use of narcotics. In addition, workmen's comp had stated she needed to be weaned from all narcotics. Patient no longer patient of Dr. Aquino, all narcotics discontinued, last narcotics 2 weeks ago. Continue flexeril, gabapentin, and amitriptyline. (5) HTN (hypertension) Comment: BP is stable. Continue metoprolol and furosemide. (6) COPD (chronic obstructive pulmonary disease) Comment: Stable-no signs of exacerbation. Continue supplemental O2. (7) GERD (gastroesophageal reflux disease) Comment: Continue pantoprazole. (8) HLD (hyperlipidemia) Comment: Continue lipitor. (9) DVT prophylaxis Comment: SQ heparin (10) Full code status Status and Disposition: Inpatient with need for > 48 hour stay with need for MRI tomorrow. Anticipate discharge to home in AM.
[2016-08-13] MEDS ORDERED: Ondansetron INJ* 2 MG/ML VIAL IV PRN (12:57)
[2016-08-13] MEDS ORDERED: Ondansetron INJ* 2 MG/ML VIAL ONE (13:05)
[2016-08-13] MEDS: Atorvastatin* 20 MG TAB PO SCH (17:09)
[2016-08-13] MEDS: Metoprolol Tartrate TAB* 25 MG PO SCH (20:28)
[2016-08-14] MEDS: Heparin VIAL(*) 5000 UNITS/ML VIAL (FIVE THOUSAND) SUBCUT SCH ×3 (05:35→21:26)
[2016-08-14] MEDS: Cyclobenzaprine TAB* 10 MG PO PRN ×2 (05:40→18:16)
[2016-08-14] MEDS: Cholecalciferol TAB* 1000 UNITS PO SCH (08:24)
[2016-08-14] MEDS: Cyanocobalamin TAB* 500 MCG PO SCH (08:24)
[2016-08-14] MEDS: Aspirin EC Low Dose* 81 MG TAB.EC PO SCH (08:25)
[2016-08-14] MEDS: Clopidogrel TAB* 75 MG PO SCH (08:25)
[2016-08-14] MEDS: Potassium Chlor TAB* 20 MEQ TAB.ER PO SCH (08:25)
[2016-08-14] MEDS: Magnesium Oxide TAB* 400 MG PO SCH (08:25)
[2016-08-14] MEDS: Ascorbic Acid TAB* 500 MG PO SCH (08:25)
[2016-08-14] MEDS: Gabapentin CAP(*) 400 MG PO SCH ×3 (08:26→21:26)
[2016-08-14] MEDS: Furosemide TAB* 40 MG PO SCH (08:26)
[2016-08-14] MEDS: Ferrous Sulfate TAB* 325 MG PO SCH (08:26)
[2016-08-14] MEDS: ALPRAZolam TAB* 0.25 MG PO SCH (08:28)
--- NOTE | 2016-08-14 11:01 | RAD ---
HISTORY: Left-sided face and arm numbness, weakness COMPARISONS: April 22, 2014 TECHNIQUE: The following sequences were obtained of the head: Sagittal T1-weighted images, axial T2-weighted images, axial FLAIR images, axial susceptibility weighted images, axial T1-weighted images. Additionally, axial diffusion-weighted images were obtained with calculated apparent diffusion coefficients. FINDINGS: HEMORRHAGE/INFARCT: There is no hemorrhage or acute infarct. MASSES/SHIFT: There is no mass or shift. EXTRA-AXIAL SPACES/MENINGES: There are no extra-axial fluid collections. SULCI AND VENTRICLES: The sulci and ventricles are normal in size and position for the patient's stated age. CEREBRUM: There are few, scattered small foci of elevated T2/FLAIR signal within the periventricular and subcortical white matter. BRAINSTEM: There are no focal parenchymal abnormalities. CEREBELLUM: There are no focal parenchymal abnormalities. The cerebellar tonsils are normal in size and position. SELLA: The sella is normal. PINEAL: The pineal region is clear. CP ANGLE/TEMPORAL BONES: The labyrinthine structures are grossly normal. VESSELS: Normal flow-voids are noted within the visualized vertebral vasculature. DIFFUSION ABNORMALITIES: There are no diffusion abnormalities. PARANASAL SINUSES/MASTOIDS: The paranasal sinuses are clear. ORBITS: The orbits are unremarkable. BONES AND SOFT TISSUE: No bone or soft tissue abnormalities are noted. OTHER: None IMPRESSION: FEW, SCATTERED NONSPECIFIC WHITE MATTER CHANGES. NO RESTRICTED DIFFUSION TO SUGGEST ACUTE INFARCT.
--- NOTE | 2016-08-14 11:34 | RAD ---
HISTORY: Left-sided face and arm numbness COMPARISONS: None TECHNIQUE: The following sequences were obtained of the cervical spine: Sagittal T1- and T2-weighted images, sagittal STIR images, axial T2 and gradient echo images. FINDINGS: BRAIN AND SPINAL CORD: The visualized spinal cord is normal in caliber, position, and signal intensity. The visualized portion of the brain is unremarkable. The cerebellar tonsils are normal in position. ALIGNMENT: The alignment is normal. VERTEBRAL BODIES: There is fusion of C5 and C6. JOINTS: There is diffuse uncovertebral and facet osteoarthritic change. There is osteoarthritis of the atlantoaxial articulation. MUSCULATURE: Unremarkable INTERVERTEBRAL DISCS: There is diffuse loss of intervertebral disc height and T2 signal throughout the spine. AXIAL IMAGES: C2-C3: There is bilateral uncovertebral facet hypertrophy. There is no significant neural foraminal narrowing or central canal stenosis. C3-C4: There is bilateral uncovertebral and facet hypertrophy. There is moderate to severe left and mild right neural foraminal narrowing. There is no significant central canal stenosis. C4-C5: There is broad-based disc osteophyte complex with bilateral uncovertebral and facet hypertrophy. There is severe bilateral neural foraminal narrowing. There is mild narrowing of the central canal. C5-C6: There is no disc herniation, spinal stenosis, or neuroforaminal narrowing. C6-C7: There is a broad-based disc osteophyte complex with bilateral uncovertebral and facet hypertrophy. There is moderate bilateral neural foraminal narrowing. There is mild narrowing of the central canal. C7-T1: There is bilateral uncovertebral and facet hypertrophy. There is moderate bilateral neural foraminal area. There is no significant central canal stenosis. SOFT TISSUES: The visualized soft tissues of the neck are unremarkable. OTHER: None. IMPRESSION: 1. DEGENERATIVE DISC DISEASE AND OSTEOARTHRITIS. 2. THERE IS MULTILEVEL NEURAL FORAMINAL NARROWING DESCRIBED ABOVE. 3. THERE IS MILD NARROWING OF THE CENTRAL CANAL AT C4-C5 AND C6-C7
[2016-08-14] MEDS: Pantoprazole TAB (NF) 40 MG TAB PO SCH (11:55)
[2016-08-14] MEDS: Acetaminophen TAB* 325 MG PO PRN ×2 (11:55→21:26)
[2016-08-14] MEDS ORDERED: Magnesium Sulfate 2 GM IV* 2 GM/50 ML BAG IVPB ONE (13:41)
--- NOTE | 2016-08-14 14:22 | PN ---
Progress Note - Progress Note SOAP: Neurology progress note Date of service: 08/14/16 Subjective: Patient's symptoms are almost unchanged. She completed her MRI which did not show an acute stroke. Objective: Vital Signs Temp Pulse Resp BP Pulse Ox 98.2 F 69 16 135/65 99 08/14/16 07:14 08/14/16 07:14 08/14/16 12:28 08/14/16 07:14 08/14/16 07:14 Current Medications Acetaminophen (Tylenol Tab*) 650 mg PO Q6H PRN PRN Reason: PAIN Last Admin: 08/14/16 11:55 Dose: 650 mg Alprazolam (Xanax Tab*) 0.25 mg PO DAILY [facility] Last Admin: 08/14/16 08:28 Dose: 0.25 mg Amitriptyline HCl (Elavil Tab*) 75 mg PO BEDTIME PRN PRN Reason: MD LOPEZ Ascorbic Acid (Vitamin C Tab*) 1,000 mg PO DAILY [facility] Last Admin: 08/14/16 08:25 Dose: 1,000 mg Aspirin (Aspirin Ec Low Dose*) 81 mg PO DAILY [facility] Last Admin: 08/14/16 08:25 Dose: 81 mg Atorvastatin Calcium (Lipitor*) 20 mg PO QPM [facility] Last Admin: 08/13/16 17:09 Dose: 20 mg Cholecalciferol (Vitamin D Tab*) 5,000 units PO DAILY [facility] Last Admin: 08/14/16 08:24 Dose: 5,000 units Clopidogrel Bisulfate (Plavix Tab*) 75 mg PO DAILY [facility] Last Admin: 08/14/16 08:25 Dose: 75 mg Cyanocobalamin (Vitamin B12 Tab*) 500 mcg PO DAILY [facility] Last Admin: 08/14/16 08:24 Dose: 500 mcg Cyclobenzaprine HCl (Flexeril Tab*) 10 mg PO TID PRN PRN Reason: SPASMS Last Admin: 08/14/16 05:40 Dose: 10 mg Ferrous Sulfate (Ferrous Sulfate Tab*) 325 mg PO DAILY [facility] Last Admin: 08/14/16 08:26 Dose: 325 mg Furosemide (Lasix Tab*) 40 mg PO DAILY [facility] Last Admin: 08/14/16 08:26 Dose: 40 mg Gabapentin (Neurontin Cap(*)) 400 mg PO TID [facility] Last Admin: 08/14/16 08:26 Dose: 400 mg Heparin Sodium (Porcine) (Heparin Vial(*)) 5,000 units SUBCUT Q8HR [facility] Last Admin: 08/14/16 05:35 Dose: 5,000 units Magnesium Sulfate (Magnesium Sulfate 2 Gm Iv*) 2 gm in 50 mls @ 50 mls/hr IVPB ONCE ONE Stop: 08/14/16 14:40 Magnesium Oxide (Magox 400 Tab*) 400 mg PO DAILY [facility] Last Admin: 08/14/16 08:25 Dose: 400 mg Metoprolol Tartrate (Lopressor Tab*) 75 mg PO BEDTIME [facility] Last Admin: 08/13/16 20:28 Dose: 75 mg Ondansetron HCl (Zofran Inj*) 4 mg IV Q4H PRN PRN Reason: NAUSEA Last Admin: 08/13/16 13:11 Dose: 4 mg Pantoprazole Sodium (Protonix Tab (Nf)) 80 mg PO DAILY [facility] Last Admin: 08/14/16 11:55 Dose: 80 mg Potassium Chloride (Klor Con Er Tab*) 20 meq PO DAILY [facility] Last Admin: 08/14/16 08:25 Dose: 20 meq MRI BRAIN W/O IMPRESSION: FEW, SCATTERED NONSPECIFIC WHITE MATTER CHANGES. NO RESTRICTED DIFFUSION TO SUGGEST ACUTE INFARCT. MRI CERVICAL SPINE WO IMPRESSION: 1. DEGENERATIVE DISC DISEASE AND OSTEOARTHRITIS. 2. THERE IS MULTILEVEL NEURAL FORAMINAL NARROWING DESCRIBED ABOVE. 3. THERE IS MILD NARROWING OF THE CENTRAL CANAL AT C4-C5 AND C6-C7 Assessment and Plan: 61 yo female admitted with numbness of the left arm and lower part of the face and also leg. There is no evidence of acute stroke on the MRI. The symptoms most likely related to the cervical and lumbar degenerative changes. Add a detailed conversation with the patient and her mother. She has been undergoing a large amount of stress recently, due to her partner leaving her and left her with 'nothing' and she had to change her residence. She had a conversation with one of the social workers today regarding her ongoing issues. These are in addition to the physical stress that she went through when her narcotics were stopped a couple of weeks ago. Discussed with the patient the role of non-narcotic pain management medications such as increasing her Gabapentin plus PT and OT. Also avoidance of heavy lifiting and pushing was discussed. From neurological standpoint, the patient can be discharged if cleared by PT. Time spent at bedside at least 25 minutes.
--- NOTE | 2016-08-14 17:04 | PN ---
Subjective Date of Service: 08/14/16 Interval History: This is a 61 yo female with a reported h/o remote CVA, COPD, CKD, chronic pain syndrome, HTN, GERD and HLD who presented with c/o L sided numbness. Neurology has been involved in her care and recommended MRI of the brain and Cspine. Patient reports that her symptoms improved, but are still present. She has numbness in both lower extremities as well as the entire L side of her body with some associated pain that seems to have improved. Patient still feels too weak to go home. Patient cites multiple social stressors that her mother helps to reiterate, patient has meet with social work who initiated VNS and APS referrals. Objective Active Medications: Acetaminophen (Tylenol Tab*) 650 mg PO Q6H PRN PRN Reason: PAIN Last Admin: 08/14/16 11:55 Dose: 650 mg Alprazolam (Xanax Tab*) 0.25 mg PO DAILY [facility] Last Admin: 08/14/16 08:28 Dose: 0.25 mg Amitriptyline HCl (Elavil Tab*) 75 mg PO BEDTIME PRN PRN Reason: MD DISCRETION Ascorbic Acid (Vitamin C Tab*) 1,000 mg PO DAILY [facility] Last Admin: 08/14/16 08:25 Dose: 1,000 mg Aspirin (Aspirin Ec Low Dose*) 81 mg PO DAILY [facility] Last Admin: 08/14/16 08:25 Dose: 81 mg Atorvastatin Calcium (Lipitor*) 20 mg PO QPM [facility] Last Admin: 08/13/16 17:09 Dose: 20 mg Cholecalciferol (Vitamin D Tab*) 5,000 units PO DAILY [facility] Last Admin: 08/14/16 08:24 Dose: 5,000 units Clopidogrel Bisulfate (Plavix Tab*) 75 mg PO DAILY [facility] Last Admin: 08/14/16 08:25 Dose: 75 mg Cyanocobalamin (Vitamin B12 Tab*) 500 mcg PO DAILY [facility] Last Admin: 08/14/16 08:24 Dose: 500 mcg Cyclobenzaprine HCl (Flexeril Tab*) 10 mg PO TID PRN PRN Reason: SPASMS Last Admin: 08/14/16 05:40 Dose: 10 mg Ferrous Sulfate (Ferrous Sulfate Tab*) 325 mg PO DAILY [facility] Last Admin: 08/14/16 08:26 Dose: 325 mg Furosemide (Lasix Tab*) 40 mg PO DAILY [facility] Last Admin: 08/14/16 08:26 Dose: 40 mg Gabapentin (Neurontin Cap(*)) 400 mg PO TID [facility] Last Admin: 08/14/16 14:25 Dose: 400 mg Heparin Sodium (Porcine) (Heparin Vial(*)) 5,000 units SUBCUT Q8HR [facility] Last Admin: 08/14/16 14:24 Dose: 5,000 units Magnesium Oxide (Magox 400 Tab*) 400 mg PO DAILY [facility] Last Admin: 08/14/16 08:25 Dose: 400 mg Metoprolol Tartrate (Lopressor Tab*) 75 mg PO BEDTIME [facility] Last Admin: 08/13/16 20:28 Dose: 75 mg Ondansetron HCl (Zofran Inj*) 4 mg IV Q4H PRN PRN Reason: NAUSEA Last Admin: 08/13/16 13:11 Dose: 4 mg Pantoprazole Sodium (Protonix Tab (Nf)) 80 mg PO DAILY [facility] Last Admin: 08/14/16 11:55 Dose: 80 mg Potassium Chloride (Klor Con Er Tab*) 20 meq PO DAILY [facility] Last Admin: 08/14/16 08:25 Dose: 20 meq Vital Signs: Temp Pulse Resp BP Pulse Ox 98.8 F 90 20 140/90 97 08/14/16 15:49 08/14/16 15:49 08/14/16 15:49 08/14/16 15:49 08/14/16 15:49 Oxygen Devices in Use Now: None Appearance: Middle aged female who appears older than stated age in NAD lying in a recliner accompanied by her mother. Respiratory: Symmetrical Chest Expansion and Respiratory Effort, Clear to Auscultation Cardiovascular: NL Sounds; No Murmurs; No JVD, RRR Abdominal: NL Sounds; No Tenderness; No Distention Extremities: No Edema Skin: No Rash or Ulcers Neurological: Alert and Oriented x 3 Result Diagrams: 08/12/16 18:00 08/12/16 18:00 Diagnostic Imaging: MRI brain - non-specific white matter changes, no acute or subacute infarct MRI Cspine - DDD, multilevel foraminal narrowing with central stenosis Assess/Plan/Problems-Billing Assessment: Ms. King Calderon is a 61 yo female with a PMH of chronic pain recently taken off all narcotics, htn, COPD on 2L NC, who was admitted on 08/12/16 with concern for left sided face and arm numbness. - Patient Problems (1) Left sided numbness Comment: L sided numbness mostly involved L side of neck/jaw and proximal arm but also extending to LLE with some associated pain Initial CT imaging negative MRI brain/C spine show some chronic degenerative changes Degenerative changes in neck and likely L spine may be responsible for pain/ numbness symptoms Appreciate neuro consult Will increase gabapentin and recommend PT (2) Chronic pain Comment: Patient had issue with Dr. Aquino with concern for inappropriate use of narcotics. In addition, workmen's comp had stated she needed to be weaned from all narcotics. Patient no longer patient of Dr. Aquino, all narcotics discontinued, last narcotics 2 weeks ago. Continue flexeril, gabapentin, and amitriptyline. (3) Anxiety and depression Comment: Likely contributing to current acute situation (4) Hypomagnesemia Comment: Cont oral supp and IV replacement (5) COPD (chronic obstructive pulmonary disease) Comment: No associated exacerbation (6) DDD (degenerative disc disease) Comment: Diffuse DDD noted on MRI, likely at least partially responsible for pain/ numbness symptoms (7) Stage III chronic kidney disease Comment: GFR 50 at admission Stable, near baseline (8) HLD (hyperlipidemia) Comment: Continue lipitor. (9) GERD (gastroesophageal reflux disease) (10) DVT prophylaxis Comment: SQ heparin (11) Full code status Status and Disposition: Inpatient. Anticipate dc tomorrow as patient felt too weak today.
[2016-08-14] MEDS: Atorvastatin* 20 MG TAB PO SCH (18:15)
[2016-08-14] MEDS: Metoprolol Tartrate TAB* 25 MG PO SCH (21:26)
[2016-08-15] MEDS: Heparin VIAL(*) 5000 UNITS/ML VIAL (FIVE THOUSAND) SUBCUT SCH (05:35)
[2016-08-15 08:48] VITALS: BP 111/60
[2016-08-15] MEDS: Gabapentin CAP(*) 400 MG PO SCH (09:29)
[2016-08-15] MEDS: Pantoprazole TAB (NF) 40 MG TAB PO SCH (09:29)
[2016-08-15] MEDS: Clopidogrel TAB* 75 MG PO SCH (09:31)
[2016-08-15] MEDS: Cyanocobalamin TAB* 500 MCG PO SCH (09:31)
[2016-08-15] MEDS: Potassium Chlor TAB* 20 MEQ TAB.ER PO SCH (09:31)
[2016-08-15] MEDS: Cyclobenzaprine TAB* 10 MG PO PRN (09:32)
[2016-08-15] MEDS: Aspirin EC Low Dose* 81 MG TAB.EC PO SCH (09:32)
[2016-08-15] MEDS: Cholecalciferol TAB* 1000 UNITS PO SCH (09:32)
[2016-08-15] MEDS: Magnesium Oxide TAB* 400 MG PO SCH (09:32)
[2016-08-15] MEDS: Ferrous Sulfate TAB* 325 MG PO SCH (09:32)
[2016-08-15] MEDS: ALPRAZolam TAB* 0.25 MG PO SCH (09:33)
[2016-08-15] MEDS: Ascorbic Acid TAB* 500 MG PO SCH (09:33)
[2016-08-15] MEDS: Furosemide TAB* 40 MG PO SCH (09:34)
--- NOTE | 2016-08-15 16:03 | DS ---
CC: Dr. Ndiaye * DISCHARGE SUMMARY: DATE OF ADMISSION: 08/12/16 DATE OF DISCHARGE: 08/15/16 PRIMARY CARE PHYSICIAN: To be established; Dr. Ndiaye. CONSULTING NEUROLOGIST: Dr. Salcedo. DISCHARGING PROVIDER: BERTRAND Landrum. SUPERVISING PHYSICIAN: Jhon Guillaume MD.* (DICTATED BY BERTRAND LANDRUM) PRIMARY DISCHARGE DIAGNOSES: 1. Left-sided numbness and pain which is likely radicular from some diffuse degenerative changes in her neck and lumbar spine. 2. Hypomagnesemia - resolved. SECONDARY DISCHARGE DIAGNOSES: 1. Chronic pain. 2. Anxiety and depression. 3. Chronic obstructive pulmonary disease without associated exacerbation. 4. Stage 3 chronic kidney disease without exacerbation. 5. Hyperlipidemia. 6. Gastroesophageal reflux disease. DISCHARGE MEDICATIONS: 1. Xanax 0.25 mg p.o. daily. 2. Albuterol 2 puffs inhaled 4 times daily as needed for shortness of breath. 3. Amitriptyline 75 mg p.o. at bedtime. 4. Vitamin C 1000 mg p.o. daily. 5. Aspirin 81 mg p.o. daily. 6. Atorvastatin 20 mg p.o. daily. 7. Calcium carbonate 600 mg p.o. daily. 8. Vitamin D 5000 units p.o. daily. 9. Plavix 75 mg p.o. daily. 10. Vitamin B12 500 mcg p.o. daily. 11. Flexeril 10 mg p.o. 3 times daily as needed. 12. Ferrous sulfate 325 mg p.o. daily. 13. Lasix 40 mg p.o. daily. 14. Gabapentin 600 mg p.o. 3 times daily. 15. Lactobacillus 100 mg p.o. daily. 16. Magnesium oxide 400 mg p.o. daily. 17. Metoprolol tartrate 75 mg p.o. at bedtime. 18. Omeprazole 40 mg p.o. daily. 19. Potassium chloride 20 mEq daily. MEDICATION CHANGES: Increase gabapentin to 600 mg [address]ITAL IMAGIN. CT of the brain shows no intracranial mass or hemorrhage. 2. Cervical spine CT shows osteopenia of the cervical spine without fracture, degenerative changes at the atlantoaxial joint present. No acute fracture noted. 3. CTA of the head shows no dissection or aneurysmal dilatation. Intracranial vessels demonstrate no occlusion. 4. MRI of the brain shows diffuse scattered nonspecific white matter changes. No restricted diffusion to suggest acute infarct. 5. Cervical spine MRI demonstrates degenerative disk disease and osteoarthritis. There is multilevel neuroforaminal narrowing and mild narrowing of the central canal at C4-5 and C6-7. HOSPITAL COURSE: This is a 61-year-old female with reported prior history of CVA as well as COPD, chronic pain syndrome, stage 3 chronic kidney disease, hypertension, hyperlipidemia and GERD who presented with complaints of left- sided facial numbness and arm weakness. The patient states that her symptoms started the morning prior to admission. Upon awakening, she had numbness in the left face and presented to the emergency department for further evaluation. Patient reported a very stressful preceding 3 weeks, which included a discharge from her primary care provider's office as well as a notification from Workmen's Comp that she needed to wean from all narcotic medications. She also lost her lifetime partner approximately a year ago and is being forced from her home with plans to move the beginning of October. When the patient reached the emergency department, her initial labs were largely unremarkable with a normal CBC. Sodium was mildly low at 129. No other significant electrolyte abnormalities. CRP was negative. Urinalysis was unremarkable and toxicology screen positive only for benzodiazepines, which she is prescribed. Initial imaging of the head and C-spine were unremarkable. Neurology was consulted. Patient underwent MRI of the brain which showed no evidence of acute or subacute infarct. Patient's complaints of pain and numbness improved slightly. Neurology thought that her complaints were likely mediated by the multilevel degenerative changes seen on her MRI and inferred to be present at the level of the lumbar spine as well. As mentioned above, patient has multiple social stressors. She has already established with a new primary care provider or at least has a pending appointment for September [address] Ndiaye. The patient has discontinued all narcotic medications as recommended. Her gabapentin was increased during her hospital stay in attempts to provide some symptomatic relief mostly from the pain that was associated with the numbness that she was experiencing. DISPOSITION AND FOLLOWUP PLAN: Patient is being discharged to home. Social work was intimately involved in her discharge process. Referral was initiated to visiting nurse service. She will require physical therapy and a home health aide and medication assistance as well. A referral has also been initiated to Adult Protective Services that can help to coordinate some of her outpatient social needs as well. Patient will need continued followup with her mental health provider and has a pending appointment as mentioned above with Dr. Ndiaye for 09/19/16. BERTRAND LANDURM [id number]/[facility] #: [id number] JAQULEIN
--- NOTE | 2016-08-15 20:59 | ED ---
Yamileth Lowe Rebecca, scribed for Prasanna Cisneros MD on 08/12/16 at 1732 . Neurological HPI - HPI Summary HPI Summary: Pt is a 61 y/o F who presents to ED with a CC of L-sided facial numbness. Facial numbness began suddenly today and has been constant since onset. Sx aggravated and alleviated by nothing. Additionally c/o LUE numbness and pain characterized as clenching, tingling in the great toe of the LLE and bilateral LE weakness. Describes weakness as "my legs feel almost like I am walking with cinder blocks on them." Additionally notes insomnia for the last 2 days secondary to pain. Denies any vision changes, difficulty speaking and any neck pain. Prior similar episodes of great toe tingling, though left severe. PMHx chronic lumbar back pain for which she was being treated with pain Rxs, though she was pulled off of in mid-July. PSHx disc surgery (2x) form [facility] sh experiences chronic L middle finger numbness. - History of Current Complaint Chief Complaint: EDNeurologicalDeficit Stated Complaint: LEFT SIDED NUMBNESS IN FACE AND EXTREMITIES Time Seen by Provider: 08/12/16 17:25 Hx Obtained From: Patient Onset/Duration: Sudden Onset, Still Present Timing: Constant Pain Intensity: 0 Pain Scale Used: 0-10 Numeric Aggravating: Nothing Alleviating: Nothing Associated Signs and Symptoms: Positive: Weakness - Bilateral LE weakness, Numbness - L-sided facial, LUE; tingling in the L great toe. Negative: Visual Changes, Impaired Speech, Neck Pain/Stiffness - Additional Pertinent History Primary Care Physician: [id number] - Allergy/Home Medications Allergies/Adverse Reactions: Allergies Allergy/AdvReac Type Severity Reaction Status Date / Time Penicillin V Allergy Severe Hives Verified 08/12/16 17:50 [From Penicillin VK Potassium] PMH/Surg Hx/FS Hx/Imm Hx Endocrine/Hematology History: Reports: Hx Anemia Denies: Hx Diabetes, Hx Thyroid Disease Cardiovascular History: Reports: Hx Hypertension, Hx Syncope, Other Cardiovascular Problems/Disorders - CVA Denies: Hx Pacemaker/ICD Respiratory History: Reports: Hx Asthma, Hx Chronic Obstructive Pulmonary Disease (COPD), Other Respiratory Problems/Disorders - ON CONSTANT O2 2.4 LITERS Denies: Hx Lung Cancer GI History: Reports: Hx Gall Bladder Disease, Hx Gastroesophageal Reflux Disease , Other GI Disorders - colitis Denies: Hx Ulcer History: Reports: Hx Acute Renal Failure - stage III, Hx Chronic Renal Failure - CKD 3, Hx Renal Disease - abnormal gfr fluids encouraged Musculoskeletal History: Reports: Hx Arthritis - NECK, HANDS, Hx Back Problems, Hx Osteoporosis, Hx Scoliosis, Other Musculoskeletal History - discs in neck, had sx Denies: Hx Rheumatoid Arthritis Sensory History: Reports: Hx Contacts or Glasses Denies: Hx Hearing Aid Opthamlomology History: Reports: Hx Contacts or Glasses Neurological History: Reports: Hx Migraine, Other Neuro Impairments/Disorders - 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 2 carpal [place] 1993, [place] [facility] [place], 1991 and 1992, [facility] c5-c6. Vascular legs surgeries; [place], 1998, , [facility] [place]adder , [place], [place]. Total Hysterectomy at age 36. arthroscopy left [place] , 2009[place] [facility] [place]. arthroscopic surgery, knees Hx Anesthesia Reactions: No - Immunization History Date of Tetanus Vaccine: Unknown Infectious Disease History: Denies: Hx Clostridium Difficile, Hx Hepatitis, Hx Human Immunodeficiency Virus (HIV), Hx of Known/Suspected MRSA, Hx Shingles, Hx Tuberculosis, History Other Infectious Disease, Traveled Outside the [place] in Last 30 Days - Family History Known Family History: Positive: Other - No hx of breast cancer - Social History Alcohol Use: None Substance Use Type: Reports: None Substance Use Comment - Amount & Last Used: Fentanyl patch and oxycodone Smoking Status (MU): Former Smoker Type: Cigarettes Amount Used/How Often: 33 years Length of Time of Smoking/Using Tobacco: quit 9 years ago Have You Smoked in the Last Year: No Review of Systems Positive: Other - Denies vision changes Negative: Arthralgia - Denies neck pain Neurological: Other - Tingling in the L great toe; Denies difficulty speaking Positive: Weakness - Bilateral LE, Numbness - L-sided facial, LUE Positive: Other - Insomnia secondary to pain All Other Systems Reviewed And Are Negative: Yes Physical Exam - Summary Physical Exam Summary: Gen: mild distress Skin: warm, color reflects adequate perfusion, dry Head: normal Eyes: EOMI, LEO ENT: normal Neck: supple, nontender Resp: CTA, breath sounds present Cardio: RRR Abd: soft, nontender Bowel: present Musc: strength/ROM intact, generalized strength Neuro: generalized shaking, A&O x3, no sensation deficits, all extremities move regularly, no focal neurological deficit. Psych: affect/mood appropriate Triage Information Reviewed: Yes Vital Signs On Initial Exam: Initial Vitals Temp Pulse Resp BP Pulse Ox 98 F 106 22 153/90 99 08/12/16 17:14 08/12/16 17:14 08/12/16 17:14 08/12/16 17:14 08/12/16 17:14 Vital Signs Reviewed: Yes Diagnostics - Vital Signs Vital Signs Temp Pulse Resp BP Pulse Ox 08/12/16 17:23 105 18 157/99 99 08/12/16 17:14 98 F 106 22 153/90 99 - Laboratory Lab Results: Lab Results 08/12/16 08/12/16 08/12/16 Range/Units 18:00 18:00 18:00 WBC 6.6 (3.5-10.8) 10^3/ul RBC 3.81 L (4.0-5.4) 10^6/ul Hgb 11.8 L (12.0-16.0) g/dl Hct 34 L (35-47) % MCV 90 (80-97) fL MCH 31 (27-31) pg MCHC 35 (31-36) g/dl RDW 13 (10.5-15) % Plt Count 247 (150-450) 10^3/ul MPV 8 (7.4-10.4) um3 Neut % (Auto) 73.4 (38-83) % Lymph % (Auto) 17.0 L (25-47) % [place] % (Auto) 5.5 (1-9) % Eos % (Auto) 1.6 (0-6) % Baso % (Auto) 2.5 H (0-2) % Absolute Neuts (auto) 4.8 (1.5-7.7) 10^3/ul Absolute Lymphs (auto) 1.1 (1.0-4.8) 10^3/ul Absolute Monos (auto) 0.4 (0-0.8) 10^3/ul Absolute Eos (auto) 0.1 (0-0.6) 10^3/ul Absolute Basos (auto) 0.2 (0-0.2) 10^3/ul Absolute Nucleated RBC 0 10^3/ul Nucleated RBC % 0 INR (Anticoag Therapy) 0.86 L (0.89-1.11) APTT 28.9 (26.0-36.3) seconds Sodium 129 L (133-145) mmol/L Potassium 4.0 (3.5-5.0) mmol/L Chloride 97 L (101-111) mmol/L Carbon Dioxide 25 (22-32) mmol/L Anion Gap 7 (2-11) mmol/L BUN 14 (6-24) mg/dL Creatinine 1.11 H (0.51-0.95) mg/dL Est GFR ( Amer) 64.5 (>60) Est GFR (Non-Af Amer) 50.1 (>60) BUN/Creatinine Ratio 12.6 (8-20) Glucose 90 (70-100) mg/dL Lactic Acid (0.5-2.0) mmol/L Calcium 9.6 (8.6-10.3) mg/dL Magnesium 1.7 L (1.9-2.7) mg/dL Total Bilirubin 0.50 (0.2-1.0) mg/dL AST 19 (13-39) U/L ALT 10 (7-52) U/L Alkaline Phosphatase 60 (34-104) U/L Total Creatine Kinase 64 (10-223) U/L CK-MB (CK-2) 1.2 (0.6-6.3) ng/mL C-Reactive Protein < 1.00 (< 5.00) mg/L Total Protein 6.6 (6.4-8.9) g/dL Albumin 4.2 (3.2-5.2) g/dL Globulin 2.4 (2-4) g/dL Albumin/Globulin Ratio 1.8 (1-3) Lipase 32 (11.0-82.0) U/L Urine Color Urine Appearance Urine pH (5-9) Ur Specific [place] (1.010-1.030) Urine Protein (Negative) Urine Ketones (Negative) Urine Blood (Negative) Urine Nitrate (Negative) Urine Bilirubin (Negative) Urine Urobilinogen (Negative) Ur Leukocyte Esterase (Negative) Urine Glucose (Negative) Urine Ascorbic Acid (Negative) Salicylates < 2.50 (<30) mg/dL Urine Opiates Screen (None Detect) Acetaminophen < 15 mcg/mL Ur Barbiturates Screen (None Detect) Ur Phencyclidine Scrn (None Detect) Ur Amphetamines Screen (None Detect) U Benzodiazepines Scrn (None Detect) Urine Cocaine Screen (None Detect) U Cannabinoids Screen (None Detect) Serum Alcohol < 10 (<10) mg/dL 08/12/16 08/12/16 08/12/16 Range/Units 18:00 19:46 19:46 WBC (3.5-10.8) 10^3/ul RBC (4.0-5.4) 10^6/ul Hgb (12.0-16.0) g/dl Hct (35-47) % MCV (80-97) fL MCH (27-31) pg MCHC (31-36) g/dl RDW (10.5-15) % Plt Count (150-450) 10^3/ul MPV (7.4-10.4) um3 Neut % (Auto) (38-83) % Lymph % (Auto) (25-47) % [place] % (Auto) (1-9) % Eos % (Auto) (0-6) % Baso % (Auto) (0-2) % Absolute Neuts (auto) (1.5-7.7) 10^3/ul Absolute Lymphs (auto) (1.0-4.8) 10^3/ul Absolute Monos (auto) (0-0.8) 10^3/ul Absolute Eos (auto) (0-0.6) 10^3/ul Absolute Basos (auto) (0-0.2) 10^3/ul Absolute Nucleated RBC 10^3/ul Nucleated RBC % INR (Anticoag Therapy) (0.89-1.11) APTT (26.0-36.3) seconds Sodium (133-145) mmol/L Potassium (3.5-5.0) mmol/L Chloride (101-111) mmol/L Carbon Dioxide (22-32) mmol/L Anion Gap (2-11) mmol/L BUN (6-24) mg/dL Creatinine (0.51-0.95) mg/dL Est GFR ( Amer) (>60) Est GFR (Non-Af Amer) (>60) BUN/Creatinine Ratio (8-20) Glucose (70-100) mg/dL Lactic Acid 0.5 (0.5-2.0) mmol/L Calcium (8.6-10.3) mg/dL Magnesium (1.9-2.7) mg/dL Total Bilirubin (0.2-1.0) mg/dL AST (13-39) U/L ALT (7-52) U/L Alkaline Phosphatase (34-104) U/L Total Creatine Kinase (10-223) U/L CK-MB (CK-2) (0.6-6.3) ng/mL C-Reactive Protein (< 5.00) mg/L Total Protein (6.4-8.9) g/dL Albumin (3.2-5.2) g/dL Globulin (2-4) g/dL Albumin/Globulin Ratio (1-3) Lipase (11.0-82.0) U/L Urine Color Straw Urine Appearance Clear Urine pH 7.0 (5-9) Ur Specific [place] 1.008 L (1.010-1.030) Urine Protein Negative (Negative) Urine Ketones Negative (Negative) Urine Blood Negative (Negative) Urine Nitrate Negative (Negative) Urine Bilirubin Negative (Negative) Urine Urobilinogen Negative (Negative) Ur Leukocyte Esterase Negative (Negative) Urine Glucose Negative (Negative) Urine Ascorbic Acid * H (Negative) Salicylates (<30) mg/dL Urine Opiates Screen None detected (None Detect) Acetaminophen mcg/mL Ur Barbiturates Screen None detected (None Detect) Ur Phencyclidine Scrn None detected (None Detect) Ur Amphetamines Screen None detected (None Detect) U Benzodiazepines Scrn Presumptive positive H (None Detect) Urine Cocaine Screen None detected (None Detect) U Cannabinoids Screen None detected (None Detect) Serum Alcohol (<10) mg/dL Result Diagrams: 08/12/16 18:00 08/12/16 18:00 Lab Statement: Any lab studies that have been ordered have been reviewed, and results considered in the medical decision making process. - CT CT Brain CT Interpretation: No Acute Changes - No intracranial mass or hemorrhage is noted. CT Interpretation Completed By: Radiologist CT Spine Cervical CT Interpretation: Positive (See Comments) - Focal osteopenia in the cervical spine without fracture. Failure of segmentation of C5-C6. Degenerative changes of the atlantoaxial joint is present. CT Interpretation Completed By: Radiologist - EKG 6080 Cardiac Rate: NL - 94 bpm EKG Rhythm: Sinus Rhythm ST Segment: Normal Ectopy: None NIH Scale - NIH Scale Level of Consciousness: Alert/Keenly Responsive Ask Patient the Month and His/Her Age: Both Correct Ask Pt to Open/Close Eyes and Enrollment Coordinator/Release Non-Paretic Hand: Both Correctly Best Gaze (Only Horizontal Eye Movement): Normal Visual Field Testing: No Visual Loss Facial Paresis-Pt to Smile & Close Eyes or [place]im[place] Symmetry: Normal/Symmetrical Motor Function - Right Arm: No Drift-Holds 10 Seconds Motor Function - Left Arm: No Drift-Holds 10 Seconds Motor Function - Right Leg: No Drift-Holds 10 Seconds Motor Function - Left Leg: No Drift-Holds 10 Seconds Limb Ataxia-Must be out of Proportion to Weakness Present: Absent Sensory (Use Pinprick to Test Arms/Legs/Trunk/Face): Normal Best Language (Describe Picture, Name Items): No Aphasia Dysarthria (Read Several Words): Normal Extinction and Inattention: No Abnormality Total Score: 0 Course/Dx - Course Course Of Treatment: A 61 year-old F presents to the ED with a CC of constant left sided facial numbness since this morning. Additionally c/o LUE numbness with pain, bilat LE weakness with L great toe tingling and insomnia secondary to pain. Denies vision changes, difficulty speaking and any neck pain. GCS 15/ 15. NO CRITICAL CARE TIME. DISCUSSED WITH NEUROLOGY. ADMIT HOSPITALIST STABLE. - Diagnoses Provider Diagnoses: Left facial numbness, Weakness Discharge - Discharge Plan Condition: Stable Disposition: ADMITTED TO [facility] documentation as recorded by the Yamileth paulino Rebecca accurately reflects the service I personally performed and the decisions made by me, Prasanna Cisneros MD.
== END 2016-08-15 12:12 | disposition home health service (06) | DRG 552 ==
LOC: ED 17:10 → MEDTELE 20:48
PROVIDERS: ADMIT Internal Medicine; ATTEND Internal Medicine
DX: M50.123 Cervical disc disorder at C6-C7 level with radiculopathy (principal); N18.3 Chronic kidney disease, stage 3 (moderate); E87.1 Hypo-osmolality and hyponatremia; M47.22 Other spondylosis with radiculopathy, cervical region; M51.36 Other intervertebral disc degeneration, lumbar region; I12.9 Hypertensive chronic kidney disease with stage 1 through stage 4 chronic kidney disease, or unspecified chronic kidney disease; J44.9 Chronic obstructive pulmonary disease, unspecified; I95.1 Orthostatic hypotension; G89.4 Chronic pain syndrome; E83.42 Hypomagnesemia; F41.8 Other specified anxiety disorders; E78.5 Hyperlipidemia, unspecified; K21.9 Gastro-esophageal reflux disease without esophagitis; D53.9 Nutritional anemia, unspecified; Z79.82 Long term (current) use of aspirin; Z79.02 Long term (current) use of antithrombotics/antiplatelets; Z79.899 Other long term (current) drug therapy; Z88.0 Allergy status to penicillin; Z80.0 Family history of malignant neoplasm of digestive organs; Z87.891 Personal history of nicotine dependence; M79.7 Fibromyalgia
CPT/HCPCS: 36415; 70450; 70496; 70498; 70551; 72125; 72141; 80053; 80061; 80307; 80320; 80329; 81003; 82550; 82553; 83605; 83690; 83735; 85025; 85610; 85730; 86140; 93005; 94760; A9270-GY; G0480; J1644; J2405; Q9967

== ENCOUNTER 2017-02-23 14:33 | Emergency (ER) | payer MEDICARE ==
--- NOTE | 2017-02-23 16:07 | UC ---
Throat Pain/Nasal Judson HPI - HPI Summary HPI Summary: 61 yo female with COPD (on home O2) presents with sinus pressure and pain as well as post nasal drip x 2 weeks moderate sore throat past few days has had cough and worsening dyspnea has had to use rescue inhaler no fever has had chills - History of Current Complaint Chief Complaint: UCRespiratory Stated Complaint: SORE THROAT, AND CHEST CONGESTION Time Seen by Provider: 02/23/17 15:50 Hx Obtained From: Patient Onset/Duration: Sudden Onset, Lasting Weeks Severity: Moderate Pain Intensity: 4 Pain Scale Used: 0-10 Numeric Cough: Nonproductive Associated Signs & Symptoms: Positive: Sinus Discomfort Related History: Smoking - ex - Allergies/Home Medications Allergies/Adverse Reactions: Allergies Allergy/AdvReac Type Severity Reaction Status Date / Time Penicillin V Allergy Severe Hives Verified 02/23/17 15:12 [From Penicillin VK Potassium] PMH/Surg Hx/FS Hx/Imm Hx Previously Healthy: Yes Respiratory History: COPD, Bronchitis, Pneumonia - Surgical History Surgical History: Yes Surgery Procedure, Year, and Place: 2 c-sections, 1981, 1995, [facility] [place]. 2 car[place] [facility] [place] 2 [place] surgeries, 1991 and 1992, [facility]. Vascular legs surgeries; [place] , [facility] [place] , 1997, [place], neck. Total Hysterectomy at age 36. arthroscopy [place] 2009, [facility] [place]. arthroscopic surgery, knees - Family History Known Family History: Positive: Hypertension, Other - No hx of breast cancer Family History: NON CONTRIBUTORY - Social History Alcohol Use: None Substance Use Type: None Substance Use Comment - Amount & Last Used: Fentanyl patch and oxycodone Smoking Status (MU): Former Smoker Type: Cigarettes Amount Used/How Often: 33 years Length of Time of Smoking/Using Tobacco: quit 9 years ago Have You Smoked in the Last Year: No When Did the Patient Quit Smoking/Using Tobacco: quit 8 yrs ago Household Exposure Type: Cigarettes - Immunization History Most Recent Influenza Vaccination: 2014 Most Recent Tetanus Shot: up to date Most Recent Pneumonia Vaccination: <4yrs Review of Systems Constitutional: Fatigue Skin: Negative Eyes: Negative ENT: Sore Throat Respiratory: Cough Cardiovascular: Negative Gastrointestinal: Negative Genitourinary: Negative Motor: Negative Neurovascular: Negative Musculoskeletal: Negative Neurological: Negative Psychological: Negative Is Patient Immunocompromised?: No All Other Systems Reviewed And Are Negative: Yes Physical Exam Triage Information Reviewed: Yes Appearance: Well-Appearing, No Pain Distress, Well-Nourished Vital Signs: Initial Vital Signs Temp 96.9 F 02/23/17 15:07 Pulse 139 02/23/17 15:07 Resp 24 02/23/17 15:07 BP 114/80 02/23/17 15:07 Pulse Ox 100 02/23/17 15:07 Vital Signs Reviewed: Yes Eyes: Positive: Conjunctiva Clear ENT: Positive: Hearing grossly normal, Pharyngeal erythema, Uvula midline. Negative: Trismus, Muffled voice, Dental tenderness Neck: Positive: Supple, Nontender, No Lymphadenopathy Respiratory: Positive: No accessory muscle use, Wheezing Cardiovascular: Positive: RRR Neurological: Positive: Alert, Muscle Tone Normal Skin Exam: Normal Diagnostics - Radiology No standard instances Xray Interpretation: No Acute Changes Radiology Interpretation Completed By: Radiologist - EKG Cardiac Rate: Tachycardia Cardiac Rhythm: Sinus: Normal - ?LAHB Ectopy: None ST Segment: Normal Throat Pain/Nasal Course/Dx - Differential Dx/Diagnosis Provider Diagnoses: acute bronchitis. pharyngitis Discharge - Discharge Plan Condition: Stable Disposition: HOME Prescriptions: Azithromycin TAB* [Zithromax TAB*] 250 mg PO DAILY #6 tab Prednisone [Deltasone] 40 mg PO DAILY #10 tab Patient Education Materials: Pharyngitis (ED), Acute Bronchitis (ED) Referrals: Fatimah Schmitt MD [Primary Care Provider] - 3 Days (if not better) Additional Instructions: recheck for new or worsening symptoms
[2017-02-23] MEDS ORDERED: Ipratropium 0.5MG/2.5ML NEB* 0.5 MG/2.5 ML NEB.SOLN INH ONE (16:23)
[2017-02-23] MEDS ORDERED: Albuterol 2.5 MG/3 ML NEB.SOL* (0.083%) INH ONE (16:23)
--- NOTE | 2017-02-23 16:36 | RAD ---
HISTORY: Cough, dyspnea COMPARISONS: December 15, 2015 VIEWS: 4: Frontal dual-energy and lateral views of the chest. FINDINGS: CARDIOMEDIASTINAL SILHOUETTE: The cardiomediastinal silhouette is normal. RICKI: The ricki are normal. PLEURA: The costophrenic angles are sharp. No pleural abnormalities are noted. LUNG PARENCHYMA: The lungs are clear. ABDOMEN: The upper abdomen is clear. There is no subphrenic gas. BONES AND SOFT TISSUES: No bone or soft tissue abnormalities are noted. OTHER: None. IMPRESSION: NO ACTIVE CARDIOPULMONARY DISEASE.
[2017-02-23 17:10] VITALS: BP 100/62
== END 2017-02-23 17:36 | disposition home or self-care (01) ==
LOC: UCEAST 14:33
DX: J20.9 Acute bronchitis, unspecified (principal); J02.9 Acute pharyngitis, unspecified; Z87.891 Personal history of nicotine dependence; Z99.81 Dependence on supplemental oxygen; J44.9 Chronic obstructive pulmonary disease, unspecified
CPT/HCPCS: 71020; 93005; 99212; G0463; J7644

== ENCOUNTER 2018-09-01 14:10 | Emergency (ER) | payer MEDICARE ==
--- OUTSIDE RECORDS SUMMARY | 2018-09-01 14:17 | XMS REPORT | Continuity of Care Document ---
:1955 External Reference #:[id number] Author Name Wanda Toya Care Team Providers Name Role Phone Fatimah Schmitt MD Primary Care Physician Unavailable Payers Date Identification Numbers Payment Provider Subscriber Policy Number: [id number] Medicare Laurie Palomares PayID: [id number] [address] [place] [address] Effective: 1994 Policy Number: [id number] Medicare Laurie Palomares Expires: 2017 PayID: [id number] [address] [place] [address] Effective: 2016 Policy Number: [id number] [facility] aLurie Calderon Expires: 2018 Group Number: 90% [id number] [facility] PayID: [id number] [address] Onset: 2000 Policy Number: [id number] [facility] Laurie Palomares Group Name: [phone] fax 2000 [facility] PayID: [id number] [address] [place] [address] Problems Active Problems Provider Date Essential hypertension Angus Erwin M.D. Onset: 10/28/2015 Chronic obstructive lung disease Zuly Zaldivar MD Onset: 11/03/2016 Encounter for screening for malignant Zuly Zaldivar MD Onset: 11/03/2016 neoplasm of respiratory organs Cervical spondylosis Vassildesi Johnson MD Onset: 04/04/2017 Family History Date Family Member(s) Observation Comments General Coronary Artery Disease (CAD) MGM General Cerebrovascular Accident (CVA) General Colon Cancer General Kidney Disease Father Colon Cancer : (age 72 Father due to Colon Cancer Years) Mother Hypertension Mother Tremor living at age 86 Siblings 1 First Sister Fibromyalgia living, 3 yr younger Social History Type Date Description Comments Sex Unknown Marital Status Single detention partner suddenly in September 2015 Lives With Alone Occupation Disabled back Tobacco Use Start: 03/12/73 Former Cigarette Smoker smoked 2.5 PPD x 33 End: 03/12/08 yr=82 pack yr. Quit 2008 Smoking Status Reviewed: 08/15/18 Former Cigarette Smoker smoked 2.5 PPD x 33 yr=82 pack yr. Quit 2008 ETOH Use Denies alcohol use Tobacco Use Start: Unknown End: Patient is a former Unknown smoker Recreational Drug Use Denies Drug Use Exercise Type/Frequency Does not exercise Allergies, Adverse Reactions, Alerts Active Allergies Reaction Severity Comments Date Penicillin childhood- Hives' Severe high doses of penicillin 08/28/2012 per patient Biaxin Nausea and Vomiting, Severe per patient 08/28/2012 Urticaria Environmental ragweed, puga danish, 11/24/2013 pollen Medications Active Medications SIG Qnty Indications Ordering Date Provider Sulfamethoxazole/Tri one by mouth twice 20tabs N39.0 Colby Kruse NP 2018 methoprim DS a day for 10 days 800-160mg Tablets Pyridium one by mouth three 9tabs N39.0 Colby Kruse NP 08/15/2018 100mg times a day for 3 Tablets days Duloxetine HCL 1 by mouth every 30caps F33.9 [facility] 07/09/2018 20mg day Diego Schmitt Caps DR Gil Amitriptyline HCL 1 po qd 30tabs F33.9 [facility] 07/09/2018 Diego Schmitt 50mg Tablets TENS Therapy Pain For daily use. Dx 1units M54.2 Fatimah 10/19/2017 Relief code m54.2 Diego Schmitt Device Voltaren apply 4 gm to area 100gm M54.2 Fatimah 07/26/2017 1% Gel 3 times daily as Diego Schmitt needed Miralax 17 gm every day 1units G89.4 Fatimah 06/14/2017 3350NF Powder mixed w/ 8 oz Diego Schmitt water/juice Carisoprodol take 1 tablet by 120tabs M54.9 Fatimah 11/10/2016 350mg mouth 3-4 times a Diego Schmitt Tablets day as needed Oxygen please use o2 at 1units R09.02 Zuly Zaldivar, 11/03/2016 Misc 2l/min, pls provide pt with portable O2 concentrator Omeprazole 1 po qd 90caps Fatimah 10/10/2016 [address] Sch[address] C[address] DR Gabapentin 1 by mouth four 120tabs Fatimah 600mg times a day Diego Schmitt Tablets Tramadol HCL ER Unknown 200mg Tablets ER 24HR Alprazolam take 1 tablet by 60tabs F41.0 Fatimah 0.25mg mouth twice a day Diego Schmitt Tablets if needed. max of 2 tabs/day Clopidogrel 1 by mouth every 90tabs Fatimah Bisulfate day Diego Schmitt 75mg Tablets Atorvastatin Calcium take 1 tablet at 90tabs Fatimah bedtime Diego Schmitt 20mg Tablets Tramadol HCL take 1 tablet by Deven, 50mg mouth every 4 to 6 SAAD Latham-LORIANE Tablets hours if needed for pain maximum d Montelukast Sodium 1 by mouth every 90tabs Fatimah day Diego Schmitt 10mg Tablets Acidophilus daily Unknown Capsules Imodium A-D 1/2 to 1 tab by Unknown 2mg mouth once daily as Tablets needed for diarrhea Nasonex 2 sprays to each 17gm Fatimah 50mcg/Act nostril twice daily Diego Schmitt Suspension Aspirin Low Dose 1 po qd 30tabs Unknown 81mg Tablets Vitamin D 1 cap po qd 30caps Unknown 5000Unit Capsules Vitamin C 1 po qd 90tabs Unknown 500mg Tablets Vitamin B-6 1 po daily Unknown Vitamin B-12 1 po daily Unknown Magnesium Oxide 1 po once daily Unknown 400mg Calcium 2 po daily Unknown 500mg Tablets History Medications Metoprolol Succinate ER 1 by mouth every Fatimah 07/09/2018 - 25mg day Diego Schmitt 07/09/2018 Tablets ER 24HR Doxycycline Hyclate 1 tab by mouth 10tabs J02.9 Fatimah 06/20/2018 - 100mg twice a day for 5 Diego Schmitt 06/29/2018 Tablets days Sulfamethoxazole/Trimetho one by mouth twice 28tabs N39.0 Yoly Kingsilke, 03/06/2018 - prim DS a day for 10 days N.P. 03/20/2018 800-160mg Tablets Pyridium one by mouth three 9tabs N39.0 Yoly Kingsilke, 03/06/2018 - 100mg Tablets times a day for 3 N.P. 03/09/2018 days Sulfamethoxazole/Trimetho one by mouth twice 14tabs N39.0 Yoly Conchis, 01/22/2018 - prim DS a day for 7 days N.P. 03/06/2018 800-160mg Tablets Terconazole Insert 45gm Fatimah 11/08/2017 - 0.4% Cream intavaginally once Diego Schmitt 03/06/2018 daily for 7 days Ciprofloxacin HCL 1 by mouth twice a 6tabs Fatimah 10/21/2017 - 250mg Tablets day for 3 days Diego Schmitt 10/25/2017 Ciprofloxacin HCL 1 by mouth twice a 10tabs Fatimah 09/29/2017 - 250mg Tablets day for 5 days Diego Schmitt 10/05/2017 Amitriptyline HCL Take 1 Tablet By 30tabs F33.9 Fatimah 09/27/2017 - 75mg Tablets Mouth Every Night Diego Schmitt 07/09/2018 AT Bedtime Meloxicam take 1 tablet by 30tabs M54.2 Fatimah 09/27/2017 - 15mg Tablets mouth daily Diego Schmitt 07/09/2018 Macrobid 1 tab by mouth 14caps N39.0 Fatimah 09/27/2017 - 100mg Capsules twice a day x 7 Diego Schmitt 09/29/2017 days Metoprolol Succinate ER take 1 tablet by 30tabs Fatimah 05/04/2017 - 50mg mouth daily Diego Schmitt 07/09/2018 Tablets ER 24HR Amitriptyline HCL 1 by mouth every 30tabs M54.2 Fatimah 04/06/2017 - 100mg Tablets night at bedtime Diego Schmitt 09/27/2017 Metoprolol Tartrate 3 by mouth once a 180tab Fatimah 10/10/2016 - 25mg day s Diego Schmitt 05/04/2017 Tablets Baclofen 2 PO qid 120tab M54.9 Fatimah 10/10/2016 - 10mg Tablets s Diego Schmitt 11/10/2016 Tizanidine HCL 1 tabs by mouth 3 90tabs G47.00 Fatimah 09/08/2016 - 4mg Tablets times daily Diego Schmitt 10/10/2016 Fentanyl 1 patch every 72 Fatimah 08/31/2016 - 37.5mcg/HR Patches hours Diego Schmitt 08/31/2016 72HR Metoprolol Succinate ER 1 by mouth every 30tabs Milena Wilson, 08/06/2014 - 25mg day (pt reports Diego 08/31/2016 Tablets ER 24HR taking 3 at hs) Metoprolol Succinate ER 1/2 by mouth every 90tabs Milena Wilson, 2013 - 50mg day Valarie.Marisa 08/06/2014 Tablets ER 24HR Ondansetron Odt 1 three times a day 90tabs Darrick Santa 11/01/2012 - 4mg Tablets as needed for Diego Hogue 09/29/2015 Dispers nausea Fentanyl topical, change q 15unit Darrick Santa 08/28/2012 - 100mcg/HR Patches 72HR two days s Diego Hogue 09/29/2015 Nystatin Rinse and swallow Unknown - as needed 08/31/2016 Proair HFA 2 puffs by mouth 1units Fatimah - 108(90Base) mcg/Act every 4 hours as Diego Schmitt 03/06/2018 Aerosol needed Fludrocortisone Acetate 2 by mouth every 180tab Fatimah - 0.1mg day s Diego Schmitt 10/11/2016 Tablets Fentanyl one every 3rd day Unknown - 50mcg/HR Patches 72HR (per Marcell) 08/31/2016 Amitriptyline HCL take once at night 90tabs Fatimah - 75mg Tablets Diego Schmitt 04/06/2017 Cyclobenzaprine HCL one by mouth three 90tabs M54.9 Fatimah - 10mg times a day as Diego Schmitt 10/10/2016 Tablets needed spasm Ferrousul once daily Unknown - 325(65Fe) mg Tablets 05/06/2016 Metoprolol Tartrate 2 by mouth at hs Unknown - 75mg 10/10/2016 Tablets Potassium Chloride ER take one Unknown - 20Meq capsule/tablet 09/07/2016 Capsules ER daily by mouth Furosemide 1 by mouth every 90tabs Fatimah - 40mg Tablets day Diego Schmitt 09/14/2017 Potassium Chloride ER 2 by mouth once 60tabs Fatimah - 20Meq daily Diego Schmitt 06/20/2018 Tablets ER Gabapentin 1 PO qid 180cap Fatimah - 300mg Capsules s Diego Schmitt 06/20/2018 Tizanidine Comfort Pack 1 to 2 po tid Unknown - 08/31/2016 Oxygen 2.5 l used Unknown - continously 03/06/2018 Oxycodone HCL 1 po tid prn 60tabs Unknown - 5mg Tablets 08/31/2016 Omeprazole 1 po bid Unknown - 40mg Capsule 10/10/2016 Metoprolol Tartrate 1 tablet po daily 60tabs Unknown - 50mg 11/24/2013 Tablets Simvastatin 1 by mouth every 90tabs Unknown - 40mg Tablets day 08/31/2016 Iron 1 po daily Unknown - Tablet 11/21/2013 Hydrochlorothiazide 1 tablet po daily 90tabs Unknown - 12.5mg as needed 11/24/2013 Tablets Cymbalta 2 po bid 21caps Unknown - 30mg Caps DR Gil 09/29/2015 Cholecalciferol daily Unknown - 11/21/2013 Citalopram Hydrobromide 1 po tid 30tabs Unknown - 20mg 09/29/2015 Tablets Amitriptyline HCL 1 po qid prn 15tabs Unknown - 25mg Tablets 03/13/2014 Advair Diskus 1 puff po bid 1units Unknown - 250-50mcg/Dose 08/31/2016 Aerosol Medications Administered in Office Medication SIG Qnty Indications Ordering Provider Date Depomedrol 40MG Lester Cotto PA-C 12/03/2017 Injection Immunizations CPT Code Status Date Vaccine Reaction Lot # [id number] Given 01/22/2018 Influenza Virus Vaccine, No immediate reaction [id number] Quadrivalent, Split, noted. Preservative Free [id number] Given 02/03/2017 Pneumonia Vaccine Vital Signs Date Vital Result Comment 08/15/2018 11:41am Height 60.5 inches 5'0.50" Weight 146.12 lb Heart Rate 89 /min BP Systolic 125 mmHg BP Diastolic 80 mmHg Body Temperature 99.0 F O2 % BldC Oximetry 99 % BMI (Body Mass Index) 28.1 kg/m2 07/09/2018 10:58am Height 60.5 inches 5'0.50" Weight 157.00 lb Heart Rate 52 /min BP Systolic Sitting 117 mmHg BP Diastolic Sitting 89 mmHg O2 % BldC Oximetry 98 % BMI (Body Mass Index) 30.2 kg/m2 06/20/2018 11:36am Height 60.5 inches 5'0.50" Weight 162.00 lb Heart Rate 77 /min BP Systolic Sitting 135 mmHg BP Diastolic Sitting 85 mmHg Body Temperature 98.9 F O2 % BldC Oximetry 94 % BMI (Body Mass Index) 31.1 kg/m2 03/06/2018 12:03pm Height 60.5 inches 5'0.50" Weight 160.00 lb Heart Rate 65 /min BP Systolic 125 mmHg BP Diastolic 78 mmHg Body Temperature 98.1 F O2 % BldC Oximetry 98 % BMI (Body Mass Index) 30.7 kg/m2 01/22/2018 2:19pm Height 60.5 inches 5'0.50" Weight 155.00 lb Heart Rate 100 /min BP Systolic Sitting 96 mmHg BP Diastolic Sitting 65 mmHg Body Temperature 98.2 F BMI (Body Mass Index) 29.8 kg/m2 12/03/2017 1:01pm Height 60.5 inches 5'0.50" Heart Rate 72 /min BP Systolic Sitting 110 mmHg BP Diastolic Sitting 80 mmHg Body Temperature 97.7 F 10/25/2017 1:17pm Height 60.5 inches 5'0.50" Weight 160.00 lb BP Systolic 116 mmHg BP Diastolic 70 mmHg Respiratory Rate 20 /min Body Temperature 97.9 F Pain Level 8 BMI (Body Mass Index) 30.7 kg/m2 10/19/2017 1:05pm Height 60.5 inches 5'0.50" Weight 160.00 lb Heart Rate 83 /min BP Systolic 94 mmHg BP Diastolic 57 mmHg Body Temperature 98.7 F O2 % BldC Oximetry 98 % BMI (Body Mass Index) 30.7 kg/m2 09/27/2017 3:00pm Height 60.5 inches 5'0.50" Weight 154.00 lb Heart Rate 87 /min BP Systolic Sitting 92 mmHg BP Diastolic Sitting 57 mmHg BP Systolic Standing 127 mmHg BP Diastolic Standing 61 mmHg BP Systolic Lying Down 114 mmHg BP Diastolic Lying Down 72 mmHg O2 % BldC Oximetry 98 % BMI (Body Mass Index) 29.6 kg/m2 09/14/2017 11:09am Height 60.5 inches 5'0.50" Weight 154.00 lb Heart Rate 94 /min BP Systolic 92 mmHg BP Diastolic 68 mmHg BP Systolic Sitting 95 mmHg BP Diastolic Sitting 69 mmHg O2 % BldC Oximetry 99 % BMI (Body Mass Index) 29.6 kg/m2 07/26/2017 11:36am Height 60.5 inches 5'0.50" Weight 155.00 lb Heart Rate 108 /min BP Systolic Sitting 119 mmHg BP Diastolic Sitting 83 mmHg Body Temperature 98.2 F O2 % BldC Oximetry 100 % BMI (Body Mass Index) 29.8 kg/m2 06/14/2017 4:20pm Height 60.5 inches 5'0.50" Weight 159.75 lb Heart Rate 114 /min BP Systolic 122 mmHg BP Diastolic 70 mmHg Body Temperature 97.7 F O2 % BldC Oximetry 97 % BMI (Body Mass Index) 30.7 kg/m2 05/04/2017 10:13am Weight 164.25 lb Heart Rate 89 /min BP Systolic 124 mmHg BP Diastolic 64 mmHg Body Temperature 98.5 F O2 % BldC Oximetry 94 % 04/06/2017 3:29pm Height 62 inches 5'2" Weight 160.00 lb Heart Rate 103 /min BP Systolic 116 mmHg BP Diastolic 70 mmHg O2 % BldC Oximetry 98 % BMI (Body Mass Index) 29.3 kg/m2 04/04/2017 3:06pm Height 62 inches 5'2" Weight 159.00 lb Heart Rate 91 /min BP Systolic Sitting 130 mmHg BP Diastolic Sitting 77 mmHg Pain Level 9 BMI (Body Mass Index) 29.1 kg/m2 03/09/2017 1:31pm Weight 157.75 lb Heart Rate 107 /min BP Systolic Sitting 120 mmHg BP Diastolic Sitting 78 mmHg Body Temperature 98.1 F O2 % BldC Oximetry 97 % 12/11/2016 1:52pm Heart Rate 101 /min BP Systolic Sitting 120 mmHg BP Diastolic Sitting 78 mmHg O2 % BldC Oximetry 98 % 2L O2 11/10/2016 10:02am Height 62 inches 5'2" Weight 160.25 lb Heart Rate 75 /min BP Systolic 130 mmHg BP Diastolic 60 mmHg Body Temperature 97.8 F O2 % BldC Oximetry 98 % BMI (Body Mass Index) 29.3 kg/m2 11/03/2016 11:13am Height 62 inches 5'2" Weight 160.00 lb per pt Heart Rate 76 /min reg BP Systolic Sitting 134 mmHg Lue, reg cuff BP Diastolic Sitting 80 mmHg Lue, reg cuff Respiratory Rate 16 /min O2 % BldC Oximetry 98 % on 2 lpm via NC BMI (Body Mass Index) 29.3 kg/m2 Neck Circumference in inches 13 10/10/2016 10:29am Height 62 inches 5'2" Weight 163.25 lb Heart Rate 96 /min BP Systolic 124 mmHg BP Diastolic 70 mmHg Body Temperature 97.6 F O2 % BldC Oximetry 98 % BMI (Body Mass Index) 29.9 kg/m2 09/08/2016 11:46am Height 62 inches 5'2" Weight 162.00 lb Heart Rate 93 /min BP Systolic 128 mmHg BP Diastolic 72 mmHg Body Temperature 98.6 F O2 % BldC Oximetry 98 % 2 liters BMI (Body Mass Index) 29.6 kg/m2 08/31/2016 11:34am Height 62 inches 5'2" Weight 161.75 lb Heart Rate 100 /min BP Systolic Sitting 110 mmHg BP Diastolic Sitting 70 mmHg Respiratory Rate 18 /min Body Temperature 97.0 F O2 % BldC Oximetry 98 % BMI (Body Mass Index) 29.6 kg/m2 11/18/2015 1:58pm Height 62 inches 5'2" Weight 160.25 lb Heart Rate 88 /min BP Systolic Sitting 156 mmHg BP Diastolic Sitting 92 mmHg Respiratory Rate 14 /min Body Temperature 99.0 F O2 % BldC Oximetry 98 % 2 L O2 NC BMI (Body Mass Index) 29.3 kg/m2 10/28/2015 4:09pm Height 62 inches 5'2" Weight 154.00 lb Heart Rate 84 /min BP Systolic Sitting 110 mmHg BP Diastolic Sitting 78 mmHg Respiratory Rate 14 /min Body Temperature 98.3 F O2 % BldC Oximetry 2 % BMI (Body Mass Index) 28.2 kg/m2 08/11/2014 11:22am Weight 176.00 lb w/ shoes Heart Rate 94 /min reg BP Systolic Sitting 102 mmHg Lue, reg cuff BP Diastolic Sitting 58 mmHg Lue, reg cuff BP Systolic Standing 104 mmHg Lue BP Diastolic Standing 60 mmHg Lue Respiratory Rate 16 /min Ejection Fraction 55-60% as of 08/10/14 08/05/2014 2:52pm Weight 177.25 lb Heart Rate 76 /min BP Systolic 66 mmHg Ra reg cuff BP Diastolic 50 mmHg Ra reg cuff BP Systolic Sitting 74 mmHg LA reg cuff BP Diastolic Sitting 52 mmHg LA reg cuff BP Systolic Standing 66 mmHg LA BP Diastolic Standing 48 mmHg LA Respiratory Rate 18 /min Ejection Fraction 55-60% 04/23/14 11/24/2013 3:04pm Height 62 inches 5'2" Weight 198.00 lb with shoes Heart Rate 66 /min BP Systolic 130 mmHg Ra lg cuff BP Diastolic 80 mmHg Ra lg cuff BP Systolic Sitting 134 mmHg LA lg cuff BP Diastolic Sitting 84 mmHg LA lg cuff BP Systolic Standing 122 mmHg LA lg cuff BP Diastolic Standing 76 mmHg LA lg cuff Respiratory Rate 15 /min BMI (Body Mass Index) 36.2 kg/m2 08/28/2012 11:23am Heart Rate 68 /min BP Systolic Sitting 112 mmHg BP Diastolic Sitting 78 mmHg Respiratory Rate 16 /min Results Test Date Facility Test Result H/L Range Note Ua Routine 08/15/2018 [facility] Ua Specific [place] 1.015 Ua PH 6 Ua Color yellow Ua Appera cloudy Ua WBC ++ Ua Protein +30 Ua Glucose normal Ua Ketones negative Ua Bilirubin negative Ua Urobilinogen normal Ua Nitrite positive Ua Occult Blood +50 Lipid Profile 07/09/2018 [facility] Triglycerides 137 mg/dL 1 (Trig/Chol/HDL) [address] [place] [address] [phone] Cholesterol 187 mg/dL 2 HDL Cholesterol 70.9 mg/dL 3 LDL Cholesterol 89 mg/dL 4 Comp Metabolic Panel 07/09/2018 [facility] Sodium 141 mmol/L N 135-[address] [place] [address] [phone] Potassium 4.6 mmol/L N 3.5-5.0 Chloride 103 mmol/L N 101-111 Co2 Carbon Dioxide 30 mmol/L N 22-32 Anion Gap 8 mmol/L N 2-11 Glucose 104 mg/dL High 70-100 Blood Urea Nitrogen 23 mg/dL N 6-24 Creatinine 1.46 mg/dL High 0.51-0.95 BUN/Creatinine Ratio 15.8 N 8-20 Calcium 10.0 mg/dL N 8.6-10.3 Total Protein 7.2 g/dL N 6.4-8.9 Albumin 4.8 g/dL N 3.2-5.2 Globulin 2.4 g/dL N 2-4 Albumin/Globulin Ratio 2.0 N 1-3 Total Bilirubin 0.50 mg/dL N 0.2-1.0 Alkaline Phosphatase 67 U/L N 34-104 Alt 15 U/L N 7-52 Ast 27 U/L N 13-39 Egfr Non- 36.3 >60 Egfr 43.9 >60 5 CBC Auto Diff 07/09/2018 [facility] White Blood 7.9 10^3/uL N 3.5-10.[address] [place] [address] [phone] Red Blood Count 4.33 10^6/uL N 3.70-4.87 Hemoglobin 14.0 g/dL N 12.0-16.0 Hematocrit 42 % High 33-41 Mean Corpuscular Volume 96 fL N 80-97 Mean Corpuscular Hemoglobin 32 pg High 27-31 Mean Corpuscular HGB Conc 34 g/dL N 31-36 Red Cell Distribution Width 13 % N 10.5-15 Platelet Count 363 10^3/uL N 150-450 Mean Platelet Volume 9.3 fL N 7.4-10.4 Abs Neutrophils 5.6 10^3/uL N 1.5-7.7 Abs Lymphocytes 1.7 10^3/uL N 1.0-4.8 Abs Monocytes 0.5 10^3/uL N 0-0.8 Abs Eosinophils 0 10^3/uL N 0-0.6 Abs Basophils 0.1 10^3/uL N 0-0.2 Abs Nucleated RBC 0 10^3/uL Granulocyte % 70.9 % Lymphocyte % 21.4 % Monocyte % 6.5 % Eosinophil % 0.4 % Basophil % 0.8 % Nucleated Red Blood Cells % 0.1 Urine Culture And 03/06/2018 [facility] Urine Culture SEE RESULT [address] [place] [address] [phone] Ua Routine 03/06/2018 [facility] Ua Specific [address] [place] Ua PH 6 Ua Color katrina Ua Appera cloudy Ua WBC negative Ua Protein negative Ua Glucose negative Ua Ketones negative Ua Bilirubin negative Ua Urobilinogen negative Ua Nitrite negative Ua Occult Blood negative Ua Routine 01/22/2018 [facility] Ua Specific [place] 1010 Ua PH 6 Ua Color yellow Ua Appera cloudy Ua WBC positive Ua Protein negative Ua Glucose negative Ua Ketones negative Ua Bilirubin negative Ua Urobilinogen negaive Ua Nitrite negative Ua Occult Blood trace Urine Culture And 01/22/2018 [facility] Urine Culture SEE RESULT [address] [place] [id number] [phone] Urine Culture And 10/19/2017 [facility] Urine Culture SEE RESULT 8, [address] [place] [address] [phone] Ua Routine 10/19/2017 [facility] Ua Specific 1.010 [place] Ua PH 6 Ua Color yellow Ua Appera clear Ua WBC ++ Ua Protein trace Ua Glucose neg Ua Ketones neg Ua Bilirubin neg Ua Urobilinogen neg Ua Nitrite neg Ua Occult Blood neg Urine Culture And 09/27/2017 [facility] Urine Culture SEE RESULT 10, [address] [place] [address] [phone] Laboratory test 09/15/2017 [facility] Cortisol 13.05 [address] g/[place] [address] [phone] Basic Metabolic 09/15/2017 [facility] Sodium 142 mmol/L N 135 - Panel [address] [place] [address] [phone] Potassium 4.7 mmol/L N 3.5-5.0 Chloride 105 mmol/L N 101-111 Co2 Carbon Dioxide 29 mmol/L N 22-32 Anion Gap 8 mmol/L N 2-11 Glucose 107 mg/dL High 70-100 Blood Urea Nitrogen 21 mg/dL N 6-24 Creatinine 1.22 mg/dL High 0.51-0.95 BUN/Creatinine Ratio 17.2 N 8-20 Calcium 9.6 mg/dL N 8.6-10.3 Egfr Non- 44.8 >60 Egfr 54.2 >60 13 CBC Auto Diff 07/30/2017 [facility] White Blood 8.5 10^3/uL N 3.5-10.[address] [place] [address] [phone] Red Blood Count 4.23 10^6/uL N 4.0-5.4 Hemoglobin 13.2 g/dL N 12.0-16.0 Hematocrit 39 % N 35-47 Mean Corpuscular Volume 92 fL N 80-97 Mean Corpuscular Hemoglobin 31 pg N 27-31 Mean Corpuscular HGB Conc 34 g/dL N 31-36 Red Cell Distribution Width 13 % N 10.5-15 Platelet Count 440 10^3/uL N 150-450 Mean Platelet Volume 7.9 um3 N 7.4-10.4 Abs Neutrophils 5.9 10^3/uL N 1.5-7.7 Abs Lymphocytes 1.9 10^3/uL N 1.0-4.8 Abs Monocytes 0.5 10^3/uL N 0-0.8 Abs Eosinophils 0 10^3/uL N 0-0.6 Abs Basophils 0.1 10^3/uL N 0-0.2 Abs Nucleated RBC 0 10^3/uL Granulocyte % 69.9 % N 38-83 Lymphocyte % 22.1 % Low 25-47 Monocyte % 6.1 % N 0-7 Eosinophil % 0.5 % N 0-6 Basophil % 1.4 % N 0-2 Nucleated Red Blood Cells % 0 Lipid Profile 05/04/2017 [facility] Triglycerides 89 mg/dL 14 (Trig/Chol/HDL) [address] [place] [address] [phone] Cholesterol 189 mg/dL 15 HDL Cholesterol 65.3 mg/dL 16 LDL Cholesterol 106 mg/dL 17 Comp Metabolic Panel 05/04/2017 [facility] Sodium 138 mmol/L N 133-[address] [place] [address] [phone] Potassium 5.0 mmol/L N 3.5-5.0 Chloride 103 mmol/L N 101-111 Co2 Carbon Dioxide 29 mmol/L N 22-32 Anion Gap 6 mmol/L N 2-11 Glucose 95 mg/dL N 70-100 Blood Urea Nitrogen 29 mg/dL High 6-24 Creatinine 1.46 mg/dL High 0.51-0.95 BUN/Creatinine Ratio 19.9 N 8-20 Calcium 9.6 mg/dL N 8.6-10.3 Total Protein 6.6 g/dL N 6.4-8.9 Albumin 4.2 g/dL N 3.2-5.2 Globulin 2.4 g/dL N 2-4 Albumin/Globulin Ratio 1.8 N 1-3 Total Bilirubin 0.30 mg/dL N 0.2-1.0 Alkaline Phosphatase 62 U/L N 34-104 Alt 9 U/L N 7-52 Ast 17 U/L N 13-39 Egfr Non- 36.4 >60 Egfr 46.8 >60 18 CBC Auto Diff 05/04/2017 [facility] White Blood 8.1 10^3/uL N 3.5-10.[address] [place] [address] [phone] Red Blood Count 3.63 10^6/uL Low 4.0-5.4 Hemoglobin 11.7 g/dL Low 12.0-16.0 Hematocrit 35 % N 35-47 Mean Corpuscular Volume 96 fL N 80-97 Mean Corpuscular Hemoglobin 32 pg High 27-31 Mean Corpuscular HGB Conc 34 g/dL N 31-36 Red Cell Distribution Width 13 % N 10.5-15 Platelet Count 302 10^3/uL N 150-450 Mean Platelet Volume 8 um3 N 7.4-10.4 Abs Neutrophils 6.2 10^3/uL N 1.5-7.7 Abs Lymphocytes 1.4 10^3/uL N 1.0-4.8 Abs Monocytes 0.4 10^3/uL N 0-0.8 Abs Eosinophils 0.1 10^3/uL N 0-0.6 Abs Basophils 0.1 10^3/uL N 0-0.2 Abs Nucleated RBC 0 10^3/uL Granulocyte % 76.3 % N 38-83 Lymphocyte % 16.6 % Low 25-47 Monocyte % 5.0 % N 0-7 Eosinophil % 1.3 % N 0-6 Basophil % 0.8 % N 0-2 Nucleated Red Blood Cells % 0 Laboratory test 05/04/2017 [facility] Vitamin B12 796 pg/mL N 180-914 [address] [place] [address] [phone] TSH (Thyroid Stim Horm) 3.09 mcIU/mL N 0.34-5.60 Laboratory test 11/09/2015 [facility] C Difficile PCR SEE RESULT [address] [place] [address] [phone] Basic Metabolic 08/07/2014 Sodium 125 mmol/L Low 133-1 Panel 45 Potassium 3.4 mmol/L Low 3.5-5.0 Chloride 85 mmol/L Low 101-111 Co2 Carbon Dioxide 32 mmol/L N 22-32 Anion Gap 8 mmol/L N 2-11 Glucose 110 mg/dL High 70-100 Blood Urea Nitrogen 17 mg/dL N 6-24 Creatinine 1.55 mg/dL High 0.51-0.95 BUN/Creatinine Ratio 11.0 N 8-20 Calcium 9.6 mg/dL N 8.6-10.3 Egfr Non- 34.3 N >60 Egfr 44.2 N >60 21 Laboratory test finding 08/07/2014 Magnesium 1.4 mg/dL Low 1.9-2.7 22 CBC Auto Diff 08/07/2014 White Blood Count 8.1 10^3/uL N 4.8-10.8 Red Blood Count 3.37 10^6/uL Low 4.0-5.4 Hemoglobin 10.4 g/dL Low 12.0-16.0 Hematocrit 30 % Low 35-47 Mean Corpuscular Volume 90 fL N 80-97 Mean Corpuscular Hemoglobin 31 pg N 27-31 Mean Corpuscular HGB Conc 34 g/dL N 31-36 Red Cell Distribution Width 14 % N 10.5-15 Platelet Count 359 10^3/uL N 150-450 Mean Platelet Volume 8 um3 N 7.4-10.4 Abs Neutrophils 6.1 10^3/uL N 1.5-7.7 Abs Lymphocytes 1.1 10^3/uL N 1.0-4.8 Abs Monocytes 0.6 10^3/uL N 0-0.8 Abs Eosinophils 0.1 10^3/uL N 0-0.6 Abs Basophils 0.1 10^3/uL N 0-0.2 Abs Nucleated RBC 0 10^3/uL N Granulocyte % 75.8 % N 38-83 Lymphocyte % 13.6 % Low 25-47 Monocyte % 7.9 % N 1-9 Eosinophil % 1.8 % N 0-6 Basophil % 0.9 % N 0-2 Nucleated Red Blood Cells % 0 N 1 Desirable: <150 Borderline High: 150-199 High: 200-499 Very High: >500 2 Desirable: <200 Borderline High: 200-239 High: >239 3 Low: <40 Desirable: 40-60 High: >60 4 Desirable: <100 Near Optimal: 100-129 Borderline High: 130-159 High: 160-189 Very High: >189 5 Because ethnic data is not always readily available, this report includes an eGFR for both -Americans and non- Americans. The National Kidney Disease Education Program (NKDEP) does not endorse the use of the MDRD equation for patients that are not between the ages of 18 and 70, are , have extremes of body size, muscle mass, or nutritional status, or are non- or non-. According to the National Kidney Foundation, irrespective of diagnosis, the stage of the disease is based on the level of kidney function: Stage Description GFR(mL/min/1.73 m(2)) 1 Kidney damage with normal or decreased GFR 90 2 Kidney damage with mild decrease in GFR 60-89 3 Moderate decrease in GFR 30-59 4 Severe decrease in GFR 15-29 5 Kidney failure <15 (or dialysis) 6 SEE RESULT BELOW Name: LAURIE PACHECO : [address]: Yoly Balderrama NP Acct: [id number] Unit: [id number] AGE: 62 Location: [facility] Re03/06/18 SEX: F Status: REG REF SPEC: [id number] MARY: 03/06/18-[address]: Yoly Balderrama NP REQ: [id number] RECD: 03/06/18 STATUS: COMP _ SOURCE: URINE SPDESC: ORDERED: Urine Culture COMMENTS: [id number] Urine Source: Random Procedure Result Reported Site Urine Culture Final 03/07/18- 1603 ML No Growth (<1,000 CFU/mL) * ML - [facility] . END OF REPORT DEPARTMENT OF PATHOLOGY, [address] [place] [address] Navin Ross M.D. Director [facility] # [id number] 7 SEE RESULT BELOW Name: LAURIE PACHECO Yolette : [address]: Yoly Balderrama NP Acct: [id number] Unit: [id number] AGE: 62 Location: [facility] Re01/22/18 SEX: F Status: REG REF SPEC: [id number] MARY: 01/22/18-[address]: Yoly Balderrama NP REQ: [id number] RECD: 01/22/18 STATUS: COMP _ SOURCE: URINE SPDESC: ORDERED: Urine Culture COMMENTS: [id number] Urine Source: Clean Catch Procedure Result Reported Site Urine Culture Final 01/23/18- 1508 ML Organism 1 STREP GROUP B [place] Count >100,000 (Many) CFU/ML Susceptibility testing of penicillins and other B-lactams approved by FDA for treatment of Streptococcus pyogenes (Group A Strep) and Streptococcus agalactiae (Group B Strep) is not necessary for clinical purposes and need not be done routinely, since as with vancomycin, resistant strains have not been recognized. (CLSI D223-B18;p.66) Positive isolates will be saved for one week. Please call the Microbiology Laboratory if further susceptibility testing is needed. * ML - Main Lab . END OF REPORT DEPARTMENT OF PATHOLOGY, [address] [place] [address] Navin Ross M.D. Director [facility] # [id number] 9 SEE RESULT BELOW Name: LAURIE PACHECO: [address]: Fatimah Schmitt MD Acct: [id number] Unit: [id number] AGE: 62 Location: [facility] Re10/19/17 SEX: F Status: REG REF SPEC: [id number] MARY: 10/19/17-1399 [facility] DR: Fatimah Schmitt MD REQ: [id number] RECD: 10/19/17 STATUS: COMP _ SOURCE: URINE SPDESC: ORDERED: Urine Culture COMMENTS: [id number] QUERIES: Urine Source: Random Procedure Result Reported Site Urine Culture Final 10/20/17- 1328 ML Organism 1 STREP GROUP B [place] Count >100,000 (Many) CFU/ML Susceptibility testing of penicillins and other B-lactams approved by FDA for treatment of Streptococcus pyogenes (Group A Strep) and Streptococcus agalactiae (Group B Strep) is not necessary for clinical purposes and need not be done routinely, since as with vancomycin, resistant strains have not been recognized. (CLSI X955-H02;p.66) Positive isolates will be saved for one week. Please call the Microbiology Laboratory if further susceptibility testing is needed. * ML - Main Lab . END OF REPORT DEPARTMENT OF PATHOLOGY, [address] [place] [address] Navin Ross M.D. Director [facility] # [id number] 11 SEE RESULT BELOW Name: KING ISABELLAURIE Yolette : [address]: Fatimah Schmitt MD Acct: [id number] Unit: [id number] AGE: 62 Location: [facility] Re09/27/17 SEX: F Status: REG REF SPEC: [id number] MARY: 09/27/17-1540 [facility] DR: Fatimah Schmitt MD REQ: [id number] RECD: 09/27/17 STATUS: COMP _ SOURCE: URINE SPDESC: ORDERED: Urine Culture COMMENTS: [id number] QUERIES: Urine Source: Random Procedure Result Reported Site Urine Culture Final 09/29/17- 0831 ML Organism 1 ESCHERICHIA COLI [place] Count >100,000 (Many) CFU/ML 1. ESCHERICHIA COLI M.I.C. RX --------- ------ Ampicillin >=32 R Cefazolin <=4 S Cefepime <=1 S Ceftriaxone <=1 S Ciprofloxacin <=0.25 S Gentamicin <=1 S Levofloxacin <=0.12 S Meropenem <=0.25 S Nitrofurantoin 64 I Tetracycline >=16 R Pipercillin/Tazobactam <=4 S Trimethoprim/Sulfamethoxazole <=20 S Amoxicillin/Clavulanic Acid 8 S Aztreonam <=1 S Contact the Microbiology Department for any additional antibiotic reporting. * ML - Main Lab . END OF REPORT DEPARTMENT OF PATHOLOGY, [address] [place] [address] Navin Ross M.D. Director [facility] # [id number] 12 AM 8.7-22.4 PM <10 13 Because ethnic data is not always readily available, this report includes an eGFR for both -Americans and non- Americans. The National Kidney Disease Education Program (NKDEP) does not endorse the use of the MDRD equation for patients that are not between the ages of 18 and 70, are , have extremes of body size, muscle mass, or nutritional status, or are non- or non-. According to the National Kidney Foundation, irrespective of diagnosis, the stage of the disease is based on the level of kidney function: Stage Description GFR(mL/min/1.73 m(2)) 1 Kidney damage with normal or decreased GFR 90 2 Kidney damage with mild decrease in GFR 60-89 3 Moderate decrease in GFR 30-59 4 Severe decrease in GFR 15-29 5 Kidney failure <15 (or dialysis) 14 Desirable: <150 Borderline High: 150-199 High: 200-499 Very High: >500 15 Desirable: <200 Borderline High: 200-239 High: >239 16 Low: <40 Desirable: 40-60 High: >60 17 Desirable: <100 Near Optimal: 100-129 Borderline High: 130-159 High: 160-189 Very High: >189 18 Because ethnic data is not always readily available, this report includes an eGFR for both -Americans and non- Americans. The National Kidney Disease Education Program (NKDEP) does not endorse the use of the MDRD equation for patients that are not between the ages of 18 and 70, are , have extremes of body size, muscle mass, or nutritional status, or are non- or non-. According to the National Kidney Foundation, irrespective of diagnosis, the stage of the disease is based on the level of kidney function: Stage Description GFR(mL/min/1.73 m(2)) 1 Kidney damage with normal or decreased GFR 90 2 Kidney damage with mild decrease in GFR 60-89 3 Moderate decrease in GFR 30-59 4 Severe decrease in GFR 15-29 5 Kidney failure <15 (or dialysis) 19 Normal Range 180 to 914 Indeterminate Range 145 to 180 Deficient Range <145 20 SEE RESULT BELOW Name: LAURIE PACHECO Yolette : [address]: Deepak Novak MD Acct: [id number] Unit: [id number] AGE: 60 Location: [facility] Re11/09/15 SEX: F Status: REG REF SPEC: [id number] MARY: 11/09/15-1430 [facility] DR: Deepak Novak MD REQ: [id number] RECD: 11/09/15 STATUS: COMP _ SOURCE: STOOL SPDESC: ORDERED: Cait aggarwal PCR COMMENTS: [id number] Procedure Result Reported Site Stool Specimen Description Final 11/09/15- 1735 ML Stool Color Brown Stool Form Nonformed Stool Consistency Pasty C. difficile PCR Final 11/09/15- 1837 ML Organism 1 027 Presumptive NEGATIVE Organism 2 Toxigenic C.diff NEGATIVE * ML - MAIN LAB ([facility]) . END OF REPORT * ML=Testing performed at Main Lab DEPARTMENT OF PATHOLOGY, [address] [place] [address] Navin Ross M.D. Director [facility] # [id number] 21 Because ethnic data is not always readily available, this report includes an eGFR for both -Americans and non- Americans. The National Kidney Disease Education Program (NKDEP) does not endorse the use of the MDRD equation for patients that are not between the ages of 18 and 70, are , have extremes of body size, muscle mass, or nutritional status, or are non- or non-. According to the National Kidney Foundation, irrespective of diagnosis, the stage of the disease is based on the level of kidney function: Stage Description GFR(mL/min/1.73 m(2)) 1 Kidney damage with normal or decreased GFR 90 2 Kidney damage with mild decrease in GFR 60-89 3 Moderate decrease in GFR 30-59 4 Severe decrease in GFR 15-29 5 Kidney failure <15 (or dialysis) 22 to be drawn today Procedures Date Code Description Status 08/14/2018 47076 ECHO Transthoracic, Real-Time 2D With Doppler And Color Completed Flow 08/07/2018 [id number] Mammogram Completed 12/03/2017 37819 Inject/Drain Joint/Bursa Major W/O US Completed 01/03/2017 05340662 Mammogram Completed 10/19/2016 91816 Pulmonary Stress Test Simple Completed 10/19/2016 76146 Spirometry Incl Graphic Record Completed 06/27/2016 45396 Carotid Doppler,Bilateral Completed 06/26/2016 67333 ECHO Transthoracic, Real-Time 2D With Doppler And Color Completed Flow 07/27/2015 70818 ECHO Transthorasic Realtime 2D W Doppler & Color Flow Completed Hosp 07/14/2015 03264 Endo-Trachial Tube Completed 04/09/2015 43529875 Mammogram Completed 10/06/2014 07826 EEG Recording Awake & Drowsy Completed 08/11/2014 59653 Holter Monitoring 24 HR New Completed 08/10/2014 11874 ECHO Transthoracic, Real-Time 2D With Doppler And Color Completed Flow 08/05/2014 94108 EKG Tracing & Interpretation Completed 04/23/2014 07548 ECHO Transthorasic Realtime 2D W Doppler & Color Flow Completed Hosp 04/22/2014 95615 EKG, Interpretation Only Completed 11/24/2013 83266 EKG Tracing & Interpretation Completed 11/18/2013 60946 Holter Monitoring 24 HR New Completed 11/04/2013 78966 Cardiac Event Monitor Completed 11/03/2013 11714 Holter Monitoring 24 HR New Completed 10/09/2012 58932 EEG Recording Awake & Drowsy Completed 10/09/2012 71416 Holter Monitor Review (24 hr) review & interp only Completed 05/10/2010 91885634 Colonoscopy Completed Encounters Type Date Location Provider Dx Diagnosis Office Visit 03/06/2018 [facility] Yoly Balderrama, N39.0 Urinary tract 11:40a Medicine - Ccmob N.P. infection, site not specified Office Visit 01/22/2018 [facility] Balderrama N39.0 Urinary tract 2:00p Medicine - Ccmob N.P. infection, site not specified Z23 Encounter for immunization Office Visit 12/03/2017 Orthopedic Cruz Burdick M17.12 Unilateral primary 1:00p Services Of MD Anca osteoarthritis, left C.M.A. knee M25.562 Pain in left knee Office Visit 10/25/2017 1:00p Orthopedic Cruz Burdick M25.562 Pain in left Services Of Chucho March MD knee M17.12 Unilateral primary osteoarthritis, left knee Office Visit 10/19/2017 1:00p [facility] Internal Fatimah I95.0 Idiopathic Caro Schmitt M.D. hypotension [facility] N39.0 Urinary tract infection, site not specified M54.2 Cervicalgia M25.562 Pain in left knee R30.0 Dysuria Office Visit 09/27/2017 3:40p [facility] Internal Fatimah I95.0 Idiopathic Caro Schmitt M.D. hypotension [facility] N39.0 Urinary tract infection, site not specified M54.2 Cervicalgia Office Visit 09/14/2017 11:20a [facility] Internal Fatimah I95.0 Idiopathic Caro Schmitt M.D. hypotension [facility] Office Visit 07/26/2017 11:40a [facility] Internal Fatimah K22.5 Diverticulum of Caro Schmitt M.D. esophagus, [facility] acquired M54.2 Cervicalgia Office Visit 05/04/2017 10:20a [facility] Internal Fatimah J44.9 Chronic [facility], unspecified E78.2 Mixed hyperlipidemia R20.2 Paresthesia of skin I10 Essential (primary) hypertension G89.4 Chronic pain syndrome Office Visit 04/06/2017 [facility] Internal Fatimah M54.2 Cervicalgia 3:20p Medicine - Faustino Schmitt M.D. Office Visit 04/04/2017 Neurosurgery Vassilios M47.892 Other 3:00p Services Of [facility] Johnson MD spondylosis, cervical region Z98.1 Arthrodesis status Office Visit 03/09/2017 1:40p [facility] Internal Colby Kruse, M50.10 Cervical disc Medicine - [employer] disorder w Ccmob radiculopathy, unsp cervical region F41.9 Anxiety disorder, unspecified R20.2 Paresthesia of skin Office Visit 12/11/2016 1:00p [facility] Internal Fatimah M54.9 Dorsalgia, Caro Schmitt M.D. unspecified [facility]ob M54.9 Dorsalgia, unspecified Office Visit 11/03/2016 11:00a Pulmonology And Zuly J44.9 Chronic Sleep Services Of MD Kayley obstructive [facility] pulmonary disease, unspecified R09.02 Hypoxemia Z12.2 Encntr screen for malignant neoplasm of respiratory organs Z87.891 Personal history of nicotine dependence Office Visit 09/08/2016 11:40a [facility] Internal Fatimah G47.00 Insomnia, Caro Schmitt, M.D. unspecified Faustino J44.9 Chronic obstructive pulmonary disease, unspecified Z87.891 Personal history of nicotine dependence Office Visit 08/31/2016 [facility] Internal Medicine Fatimah M54.9 Dorsalgia, 11:00a - Faustino Schmitt M.D. unspecified Office Visit 08/14/2016 Neurohospitalist Abdoul R20.0 Anesthesia of 2:37p Elizabeth Salcedo M.D. skin Office Visit 08/13/2016 Neurohospitalist Abdoul R20.0 Anesthesia of 2:36p Elizabeth Salcedo M.D. skin Office Visit 08/12/2016 Neurohospitalist Abdoul R20.0 Anesthesia of 2:35p Elizabeth Salcedo M.D. skin Office Visit 08/12/2016 [facility] Koki Harman, R20.0 Anesthesia of 2:45p Assoc,pc Hospitalists N.P. skin G89.29 Other chronic pain J44.9 Chronic obstructive pulmonary disease, unspecified I10 Essential (primary) hypertension Office 12/15/2015 [facility] Tatum Blanchard K52.9 Noninfective Visit 2:18p Assoc,kavin Palomo NP gastroenteritis and Hospitalists colitis, unspecified R11.2 Nausea with vomiting, unspecified J44.9 Chronic obstructive pulmonary disease, unspecified Office Visit 11/18/2015 2:00p [facility] Whit Cunningham Z12.11 Encounter for Leatha Novak M.D. screening for Diseases malignant neoplasm of colon R19.7 Diarrhea, unspecified Office Visit 10/28/2015 [facility] Roscoe Cunningham R19.7 Diarrhea, 4:20p Leatha Novak M.D. unspecified Diseases Office Visit 08/17/2015 [facility] Angus Erwin, R00.0 Tachycardia, 9:51a Assockavin M.D. unspecified Hospitalists I10 Essential (primary) hypertension Office Visit 08/02/2015 [facility] Jacky A04.7 Enterocolitis due 3:39p Assoc,kavin Mercado MD to Clostridium Hospitalists difficile A41.9 Sepsis, unspecified organism R79.89 Other specified abnormal findings of blood chemistry I95.89 Other hypotension Office Visit 08/01/2015 [facility] Jacky A04.7 Enterocolitis due 3:39p Assoc,kavin Mercado MD to Clostridium Hospitalists difficile A41.9 Sepsis, unspecified organism R79.89 Other specified abnormal findings of blood chemistry I95.89 Other hypotension Office Visit 07/31/2015 3:38p [facility] Sherice Rico A41.9 Sepsis, Assoc,kavin Mercado MD unspecified Hospitalists organism A04.7 Enterocolitis due to Clostridium difficile R79.89 Other specified abnormal findings of blood chemistry I95.89 Other hypotension Office Visit 07/30/2015 3:37p [facility] Sherice Rico A41.9 Sepsis, Assoc,pc MD Rogelio unspecified Hospitalists organism A04.7 Enterocolitis due to Clostridium difficile R79.89 Other specified abnormal findings of blood chemistry I95.89 Other hypotension Office Visit 07/29/2015 3:37p [facility] Jessica A41.9 Sepsis, Assoc,pc Charlie, D.O. unspecified Hospitalists organism A04.7 Enterocolitis due to Clostridium difficile R79.89 Other specified abnormal findings of blood chemistry I95.89 Other hypotension Office Visit 07/28/2015 [facility] Jessica A04.7 Enterocolitis due 3:36p Assoc,pc Charlie, D.O. to Clostridium Hospitalists difficile A41.9 Sepsis, unspecified organism R79.89 Other specified abnormal findings of blood chemistry I95.89 Other hypotension Office Visit 07/27/2015 3:36p [facility] Jessica A41.9 Sepsis, Assoc,pc Charlie, D.O. unspecified Hospitalists organism A04.7 Enterocolitis due to Clostridium difficile R79.89 Other specified abnormal findings of blood chemistry Office 07/26/2015 [facility] Fernando Sahu R65.10 Sirs of Visit 3:35p kavin Song II, M.D. non-infectious Hospitalists origin w/o acute organ dysfunction R50.81 Fever presenting with conditions classified elsewhere K52.9 Noninfective gastroenteritis and colitis, unspecified R79.89 Other specified abnormal findings of blood chemistry Office Visit 07/23/2015 [facility] Jeffery J96.01 Acute respiratory 10:58a kavin Song M.D. failure with Hospitalists hypoxia K52.9 Noninfective gastroenteritis and colitis, unspecified R41.0 Disorientation, unspecified F99 Mental disorder, not otherwise specified Office Visit 07/22/2015 [facility] J96.01 Acute respiratory 10:57a kavin Song M.D. failure with Hospitalists hypoxia K52.9 Noninfective gastroenteritis and colitis, unspecified R41.0 Disorientation, unspecified F99 Mental disorder, not otherwise specified Office Visit 07/21/2015 [facility] Jeffery J96.01 Acute respiratory 10:57a kavin Song M.D. failure with Hospitalists hypoxia R41.0 Disorientation, unspecified K52.9 Noninfective gastroenteritis and colitis, unspecified F99 Mental disorder, not otherwise specified Office Visit 07/20/2015 [facility] R41.0 Disorientation, 10:56a kavin Song M.D. unspecified Hospitalists J96.01 Acute respiratory failure with hypoxia K52.9 Noninfective gastroenteritis and colitis, unspecified F99 Mental disorder, not otherwise specified Office Visit 07/19/2015 [facility] Sherice Martinez R41.0 Disorientation, 3:07p Assoc,kavin Gomezre, D.O. unspecified Hospitalists J96.01 Acute respiratory failure with hypoxia K52.9 Noninfective gastroenteritis and colitis, unspecified Office Visit 07/18/2015 [facility] Sherice Martinez R41.0 Disorientation, 3:06p Assoc,pc Nohemi, D.O. unspecified Hospitalists J96.01 Acute respiratory failure with hypoxia K52.9 Noninfective gastroenteritis and colitis, unspecified Office Visit 07/17/2015 [facility] Sherice Martinez R41.0 Disorientation, 3:05p Assoc,pc Nohemi, D.O. unspecified Hospitalists J96.01 Acute respiratory failure with hypoxia K52.9 Noninfective gastroenteritis and colitis, unspecified Office Visit 07/16/2015 [facility] Feliberto SheppardDiane J96.01 Acute respiratory 3:05p Assoc,pc Nohemi, D.O. failure with Hospitalists hypoxia R41.0 Disorientation, unspecified K52.9 Noninfective gastroenteritis and colitis, unspecified Office Visit 07/15/2015 [facility] Sherice SheppardDiane J96.01 Acute respiratory 3:04p Assoc,pc Nohemi, D.O. failure with Hospitalists hypoxia R41.0 Disorientation, unspecified K52.9 Noninfective gastroenteritis and colitis, unspecified Office Visit 07/14/2015 [facility] Feliberto SheppardDiane J96.01 Acute respiratory 3:03p Assoc,kavin Song D.O. failure with Hospitalists hypoxia R41.0 Disorientation, unspecified K52.9 Noninfective gastroenteritis and colitis, unspecified Office Visit 07/12/2015 [facility] Kera K52.9 Noninfective 2:59p Assoc,kavin Banuelos, DO gastroenteritis and Hospitalists colitis, unspecified R57.1 Hypovolemic shock F99 Mental disorder, not otherwise specified E87.1 Hypo-osmolality and hyponatremia Office Visit 07/11/2015 [facility] Kera K52.9 Noninfective 9:16a Assoc,kavin Banuelos, DO gastroenteritis and Hospitalists colitis, unspecified R57.1 Hypovolemic shock E87.1 Hypo-osmolality and hyponatremia Office Visit 07/10/2015 [facility] Chris K52.9 Noninfective 9:16a Asskavin coelho M.D. gastroenteritis and Hospitalists colitis, unspecified R57.1 Hypovolemic shock E87.1 Hypo-osmolality and hyponatremia Office Visit 07/09/2015 [facility] Chris K52.9 Noninfective 9:15a kavin Song M.D. gastroenteritis and Hospitalists colitis, unspecified R57.1 Hypovolemic shock Office Visit 07/08/2015 9:14a [facility] Claudio Patel, R57.1 Hypovolemic shock Asskavin coelho M.D. Hospitalists K52.9 Noninfective gastroenteritis and colitis, unspecified F99 Mental disorder, not otherwise specified Office Visit 07/07/2015 9:14a [facility] Claudio Ptael, R57.1 Hypovolemic shock Asskavin coelho M.D. Hospitalists K52.9 Noninfective gastroenteritis and colitis, unspecified E87.1 Hypo-osmolality and hyponatremia Office Visit 07/06/2015 9:13a [facility] Claudio Patel, R57.1 Hypovolemic shock kavin Song M.D. Hospitalists K52.9 Noninfective gastroenteritis and colitis, unspecified E87.1 Hypo-osmolality and hyponatremia Office Visit 07/05/2015 9:12a [facility] Claudio Patel, R57.1 Hypovolemic shock Assockavin M.D. Hospitalists K52.9 Noninfective gastroenteritis and colitis, unspecified E87.1 Hypo-osmolality and hyponatremia Office Visit 06/24/2015 12:33p [facility] Fernando Sahu R55 Syncope and Assoc,kavin BHARDWAJ M.D. collapse Hospitalists E87.1 Hypo-osmolality and hyponatremia I95.1 Orthostatic hypotension J44.9 Chronic obstructive pulmonary disease, unspecified Office Visit 05/05/2015 11:12a [facility] Jessica A41.9 Sepsis, Assoc,kavin Guerra D.O. unspecified Hospitalists organism K52.9 Noninfective gastroenteritis and colitis, unspecified K21.9 Gastro-esophageal reflux disease without esophagitis I95.1 Orthostatic hypotension [facility], Assoc,kavin Guerra D.Shanon unspecified Hospitalists organism K52.9 Noninfective gastroenteritis and colitis, unspecified K21.9 Gastro-esophageal reflux disease without esophagitis I95.1 Orthostatic hypotension Office Visit 05/03/2015 [facility] Josi K52.9 Noninfective 11:11a kavin Song M.D. gastroenteritis and Hospitalists colitis, unspecified A41.9 Sepsis, unspecified organism K21.9 Gastro-esophageal reflux disease without esophagitis I95.89 Other hypotension Office Visit 05/02/2015 [facility] Josi K52.9 Noninfective 11:11a kavin Song M.D. gastroenteritis and Hospitalists colitis, unspecified A41.9 Sepsis, unspecified organism K21.9 Gastro-esophageal reflux disease without esophagitis I95.89 Other hypotension Office Visit 05/01/2015 [facility] Monica Nielson1.9 Sepsis, 11:11a kavin Song M.D. unspecified Hospitalists organism K52.9 Noninfective gastroenteritis and colitis, unspecified K21.9 Gastro-esophageal reflux disease without esophagitis I95.89 Other hypotension [facility] 11:10a kavin Song M.D. gastroenteritis and Hospitalists colitis, unspecified A41.9 Sepsis, unspecified organism K21.9 Gastro-esophageal reflux disease without esophagitis I95.89 Other hypotension Office Visit 04/29/2015 [facility] Josi K52.9 Noninfective 11:09a Assockavin M.D. gastroenteritis and Hospitalists colitis, unspecified A41.9 Sepsis, unspecified organism K21.9 Gastro-esophageal reflux disease without esophagitis I95.89 Other hypotension Office Visit 04/28/2015 [facility] Johnny K52.9 Noninfective 11:04a Assoc,kavin Tovar, N.P. gastroenteritis and Hospitalists colitis, unspecified A41.9 Sepsis, unspecified organism K21.9 Gastro-esophageal reflux disease without esophagitis I10 Essential (primary) hypertension Office Visit 10/07/2014 [facility] Jessica 276.1 Hyposmolality & Or 11:36a Assoc,Cl De Dios.O. Hyponatremia Hospitalists 780.2 Syncope & Collapse 458.0 Hypotension Orthostatic 496 COPD Airway Obstruction Chronic Not Class Elsewhere [facility] Hypos[facility]ality & Or 11:36a Assoc,pc Charlie D.O. Hyponatremia Hospitalists 780.2 Syncope & Collapse 458.0 Hypotension Orthostatic 496 COPD Airway Obstruction Chronic Not Class Elsewhere Office Visit 10/05/2014 11:35a [facility] Koki Harman, 276.1 Hyposmolality & Or Assoc,kavin N.P. Hyponatremia Hospitalists 780.2 Syncope & Collapse 458.0 Hypotension Orthostatic 496 COPD Airway Obstruction Chronic Not Class Elsewhere Office Visit 08/11/2014 11:45a [facility] Milena Wilson, 458.9 Hypotension Of Paint Specialist M.D. 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 Cerebral Artery Hospitalists Unspec W/ Cerebral Infarc 780.79 Malaise And Fatigue Other 782.0 Skin Sensation Disturbance 401.9 Hypertension Unspec Office Visit 04/23/2014 [facility] Sandra Martinez 435.9 TIA Ischemia 10:21a Clinic Diego Cardoza Cerebral Transient Unspec Office Visit 04/22/2014 [facility] Kera Banuelos, 780.79 Malaise And 3:02p Assoc,kavin Hospitalists DO Fatigue Other 782.0 Skin Sensation Disturbance 401.9 Hypertension Unspec E888.9 Unspecified Fall Office Visit 11/24/2013 2:45p [facility] Milean Wilson, V15.88 History Of Of Marta Cortez Fall 785.0 Tachycardia Unspec 272.2 Hyperlipidemia Mixed 401.1 Hypertension Benign Office Visit 11/01/2012 9:45a [facility] Darrick Santa 327.41 Confusional Services Of Marta Hogue M.D. Arousal 346.10 Migraine Common W/O Intractable W/O Status Migrainosus Office Visit 08/28/2012 11:00a [facility] Darrick Santa 780.2 Syncope & Services Of Marta Hogue M.D. Collapse Office Visit 08/17/2009 12:15a [facility] Rober Tran, 486 Pneumonia Assockavin M.D. Organism Unspec Hospitalists 496 COPD Airway Obstruction Chronic Not Class Elsewhere 724.5 Backache Unspec Office Visit 08/16/2009 12:30a [facility] Rober Tran, 486 Pneumonia Assockavin M.D. Organism Unspec Hospitalists 496 COPD Airway Obstruction Chronic Not Class Elsewhere 724.5 Backache Unspec Office Visit 08/15/2009 12:30a [facility] Rober Tran, 486 Pneumonia Assockavin M.D. Organism Unspec Hospitalists 496 COPD Airway Obstruction Chronic Not Class Elsewhere 724.5 Backache Unspec Office Visit 08/14/2009 12:15a [facility] Taina 486 Pneumonia Assoc,pc Kadi, M.D. Organism Unspec Hospitalists 496 COPD Airway Obstruction Chronic Not Class Elsewhere 724.5 Backache Unspec Office Visit 08/13/2009 1:00a [facility] Michelle Crawford, 486 Pneumonia Assoc,kavin Cortez Organism Unspec Hospitalists 305.1 Tobacco Use Disorder 784.0 Headache 276.8 Hypopotassemia Plan of Treatment Future Appointment(s):09/18/2018 11:15 am - [facility]CS[facility]:15 am - Michelle Rose LCS[facility] at [facility]/13/2018 2:20 pm - Fatimah Schmitt M.D. at [facility]
[2018-09-01 14:23] VITALS: BP 132/88
--- NOTE | 2018-09-01 14:28 | UC ---
Skin Complaint HPI - HPI Summary HPI Summary: 63 y/o female presents to the urgent care c/o Pt states itchy rash on entire body that began 08/30/18. Pt states no relief with otc treatment. Pt states rash is worse at night. - History of Current Complaint Chief Complaint: UCSkin Time Seen by Provider: 09/01/18 14:27 Stated Complaint: RASH Hx Obtained From: Patient Onset/Duration: Gradual Onset, Lasting Days - 3 days, Still Present, Worse Since - today w/ itchiness Skin Exposure Onset/Duration: Days Ago - 3 days Timing: Constant Onset Severity: Mild Current Severity: Mild Pain Intensity: 1 - some at touch Pain Scale Used: 0-10 Numeric Location: Discrete - upper chest, left hand and RT upper arm Character: Pruritus, Redness Aggravating Factor(s): Touch Alleviating Factor(s): Nothing Associated Signs & Symptoms: Positive: Rash - round red rash on chest , left hand and RT upper arm w/ itchiness. Negative: Difficulty Breathing, Fever, Chills, Cough, Wheezing, Hoarseness, Throat Tightening, Drainage, Tenderness Related History: Possible Reaction to: Environmental Exposure - Allergy/Home Medications Allergies/Adverse Reactions: Allergies Allergy/AdvReac Type Severity Reaction Status Date / Time penicillin V Allergy Hives Verified 09/01/18 14:24 PMH/Surg Hx/FS Hx/Imm Hx Previously Healthy: Yes Cardiovascular History: Hypertension Respiratory History: Asthma GI/ History: Gastroesophageal Reflux Other Neurological History: chronic back pain Psychological History: Depression - Surgical History Surgical History: Yes Surgery Procedure, Year, and Place: 2 c-sections, 1981, 1995, [facility] [place], [place]. 2 carpal tunnel releases NATY, 1993, [place], [facility] [place]. 2 disc surgeries, 1991 and 1992, [facility]. Vascular legs surgeries; naty, 1998, , [facility] [place]. gallbladder , 1997, [facility],. Total Hysterectomy at age 36. arthroscopy left knee, 2009, [facility] [place]. Heart Cath - NO STENTS - Family History Known Family History: Positive: Hypertension, Other - No hx of breast cancer Family History: NON CONTRIBUTORY - Social History Occupation: Retired Lives: With Family Alcohol Use: Rare Substance Use Type: None Substance Use Comment - Amount & Last Used: Fentanyl patch and oxycodone Smoking Status (MU): Former Smoker Type: Cigarettes Amount Used/How Often: 33 years Length of Time of Smoking/Using Tobacco: quit 9 years ago Have You Smoked in the Last Year: No When Did the Patient Quit Smoking/Using Tobacco: quit 8 yrs ago Household Exposure Type: Cigarettes - Immunization History Most Recent Influenza Vaccination: 2014 Most Recent Tetanus Shot: up to date Most Recent Pneumonia Vaccination: <4yrs Review of Systems All Other Systems Reviewed And Are Negative: Yes Constitutional: Positive: Negative Skin: Positive: Rash - round red rash on chest , left hand and RT upper arm w/ itchiness Eyes: Positive: Negative ENT: Positive: Negative Respiratory: Positive: Negative Cardiovascular: Positive: Negative Gastrointestinal: Positive: Negative Genitourinary: Positive: Negative Motor: Positive: Negative Neurovascular: Positive: Negative, Decreased Sensation Neurological: Positive: Negative Psychological: Positive: Negative Is Patient Immunocompromised?: No Physical Exam - Summary Physical Exam Summary: Vital Signs Reviewed: Yes General: well appearing, well nourished female in no acute apparent pain distress, sitting comfortably on examining table Eye Exam: Normal Eyes: Positive: Conjunctiva Clear - PERRLA< EOMI, fundi grossly normal ENT: Positive: Normal ENT inspection, Hearing grossly normal, Pharynx normal, TMs normal Neck: Positive: Supple, Nontender, No Lymphadenopathy Respiratory: Positive: Chest non-tender, Lungs clear, Normal breath sounds, No respiratory distress Cardiovascular: Positive: RRR, No Murmur, Pulses Normal, Brisk Capillary Refill Abdomen Description: Positive: Nontender, No Organomegaly, Soft. Negative: CVA Tenderness (R), CVA Tenderness (L) Bowel Sounds: Positive: Present Musculoskeletal: Positive: Strength Intact, ROM Intact, No Edema Neurological: Positive: Alert, Muscle Tone Normal Psychological Exam: Normal Skin: Positive: Positive erythematous patch w/ indistinct borders, warm and tender to palpation, no drainage observed. pulses WNL, capillary refill brisk, sensation WNL. Triage Information Reviewed: Yes Vital Signs: Initial Vital Signs Temp 96.6 F 09/01/18 14:19 Pulse 93 09/01/18 14:19 Resp 18 09/01/18 14:19 BP 132/88 09/01/18 14:19 Pulse Ox 98 09/01/18 14:19 Course/Dx - Differential Diagnoses - Skin Complaint Differential Diagnoses: Abscess, Cellulitis, Contact Dermatitis, Local Allergic Reaction, MRSA, Tick Born Illness, Urticaria - Diagnoses Provider Diagnosis: Contact dermatitis Discharge - Sign-Out/Discharge Documenting (check all that apply): Patient Departure - d/C home All imaging exams completed and their final reports reviewed: No Studies - Discharge Plan Condition: Stable Disposition: HOME Patient Education Materials: Contact Dermatitis (ED) Referrals: Fatimah Schmitt MD [Primary Care Provider] - 3 Days Additional Instructions: 1-Please apply triamcinolone topical creas as directed. Avoid sun exposure 2-Take Benadryl PO as directed. Do not drive if it is causing drowsiness or only take it at night time to alleviate itchiness. 3-If symptoms do not improve or worsen please f/u with your PCP or Senior Architect/Design Manager DR Lawrence for further evaluation and treatment. - Billing Disposition and Condition Condition: STABLE Disposition: Home
== END 2018-09-01 14:57 | disposition home or self-care (01) ==
LOC: UCEAST 14:10
DX: L25.9 Unspecified contact dermatitis, unspecified cause (principal); I10 Essential (primary) hypertension; K21.9 Gastro-esophageal reflux disease without esophagitis; F41.9 Anxiety disorder, unspecified; Z87.891 Personal history of nicotine dependence; Z88.0 Allergy status to penicillin
CPT/HCPCS: 99212; G0463

== ENCOUNTER 2020-11-29 07:30 | Observation (INO) ==
[~2020-11-29 07:30] MED LIST changes: +Buffered Lidocaine 1% SYRIN 1 ml INTRADERM ONE; +Dexamethasone IV 4 MG/ML VIAL 1 ml VIAL IV SLOW PU ONE; -Ketorolac INJ* 60 MG/2 ML VIAL IM ONE; -LORazepam TAB(*) 1 MG PO ONE; +Lactated Ringers 1000 ml BAG 1,000 ML IV SCH
[2020-11-29] MEDS ORDERED: Dexamethasone IV 4 MG/ML VIAL 1 ml VIAL ONE (09:53)
[2020-11-29] MEDS ORDERED: Vancomycin 1,000 MG VIAL ONE (11:32)
[2020-11-29] MEDS ORDERED: Bupivacaine 0.5% W/EPI SDV 10 ML VIAL INJ ONE (11:32)
[2020-11-29] MEDS ORDERED: Midazolam 2 mg/2 ml VIAL 1 mg/ml 2 ml VIAL (2 mg) ONE ×3 (12:00→13:11)
[2020-11-29] MEDS ORDERED: fentaNYL 100 mcg/2 ml 50 MCG/ML VIAL ONE (12:47)
[2020-11-29] MEDS ORDERED: ROPIVACAINE 5 MG/ML 30 ML BTL (0.5%) ONE (12:47)
[2020-11-29] MEDS ORDERED: Morphine 4 MG/ML VIAL (1 ml) IV PRN (13:07)
[2020-11-29] MEDS ORDERED: oxyCODONE/Acetamin 5/325 mg TAB PO PRN (13:07)
[2020-11-29] MEDS ORDERED: fentaNYL 100 mcg/2 ml 50 MCG/ML VIAL IV PRN (13:07)
[2020-11-29] MEDS ORDERED: HYDROcodone/ACETAMIN 5/325 mg TAB PO PRN (13:07)
[2020-11-29] MEDS ORDERED: Naloxone 0.4 mg VIAL 0.4 mg/ml 1 ml VIAL IV PRN (13:07)
[2020-11-29] MEDS ORDERED: DiMENhydriNATE IV 50 mg/ml 1 ml VIAL IV PUSH PRN (13:07)
[2020-11-29] MEDS ORDERED: Ondansetron 4 mg VIAL 2 MG/ML 2 ml VIAL ONE (14:16)
[2020-11-29] MEDS ORDERED: Propofol 10 MG/ML 20 ML BTL ONE ×2 (14:35→15:43)
[2020-11-29] MEDS ORDERED: Magnesium Hydroxide LIQ 30 ML UDC PO PRN (16:40)
[2020-11-29] MEDS ORDERED: Ondansetron 4 mg VIAL 2 MG/ML 2 ml VIAL IV PRN (16:40)
[2020-11-29] MEDS ORDERED: Morphine 2 MG/ML SYRINGE IV PRN (16:40)
[2020-11-29] MEDS ORDERED: diPHENhydraMINE 25 mg TAB PO PRN (16:40)
[2020-11-29] MEDS ORDERED: Lactulose 30 ml UDC PO PRN (16:40)
[2020-11-29] MEDS ORDERED: Ondansetron ODT 4 mg TAB 4 MG TAB PO PRN (16:40)
[2020-11-29] MEDS ORDERED: diPHENhydraMINE IV 50 MG/ML 1 ml VIAL (BENADRYL) IV PRN (16:40)
[2020-11-29] MEDS ORDERED: Gabapentin 600 mg TAB (NF) PO SCH (17:00)
[2020-11-29] MEDS ORDERED: NFT: Estradiol VAG CM (NF) 1 APPLIC TUBE VAGINAL SCH (17:00)
[2020-11-29] MEDS ORDERED: HYDROcodone/ACETAMIN 5/325 mg TAB ONE (17:44)
[2020-11-29] MEDS: Aspirin EC 81 mg TAB.EC (enteric coated) PO SCH (18:38)
[2020-11-29] MEDS: Lactated Ringers 1000 ml BAG 1,000 ML IV SCH (18:41)
[2020-11-29] MEDS: Magnesium Hydroxide LIQ 30 ML UDC PO SCH (19:40)
[2020-11-29] MEDS: Clindamycin 600 MG/D5W BAG 600 MG/50 ML BAG IV SCH (21:15)
[2020-11-30] MEDS: Clindamycin 600 MG/D5W BAG 600 MG/50 ML BAG IV SCH ×2 (05:22→13:05)
[2020-11-30 05:24] LABS: Hematocrit 25 % (35-47); Hemoglobin 8.4 g/dL (12.0-16.0); Mean Platelet Volume 7.8 fL (7.4-10.4); Platelet Count 204 10^3/uL (150-450)
[2020-11-30] MEDS: Lactated Ringers 1000 ml BAG 1,000 ML IV SCH (05:26)
[2020-11-30 05:39] LABS: Calcium 8.3 mg/dL (8.6-10.3); EGFR African American 81.5 (>60); EGFR Non-African American 67.3 (>60); Potassium 3.5 mmol/L (3.5-5.0)
[2020-11-30] MEDS: Magnesium Hydroxide LIQ 30 ML UDC PO SCH ×2 (08:30→20:06)
[2020-11-30] MEDS: Vitamin THERAPEUTIC TAB PO SCH (08:31)
[2020-11-30] MEDS ORDERED: Duloxetine Sprinkle 30 mg CAP PO SCH (09:00)
[2020-11-30] MEDS: DULoxetine DR 30 mg CAP PO SCH (11:31)
[2020-11-30] MEDS: Aspirin EC 81 mg TAB.EC (enteric coated) PO SCH (17:16)
[2020-12-01 07:12] LABS: Hematocrit 24 % (35-47); Hemoglobin 8.2 g/dL (12.0-16.0); Mean Platelet Volume 8.6 fL (7.4-10.4); Platelet Count 195 10^3/uL (150-450)
[2020-12-01] MEDS: Magnesium Hydroxide LIQ 30 ML UDC PO SCH (08:17)
[2020-12-01] MEDS: DULoxetine DR 30 mg CAP PO SCH (08:18)
[2020-12-01] MEDS: Vitamin THERAPEUTIC TAB PO SCH (08:18)
[2020-12-01 10:34] VITALS: BP 119/72
[2020-12-01] MEDS ORDERED: Iodixanol (CONTRAST) 320 MG/ML 100 ML SDV IV ONE (12:01)
== END 2020-12-01 16:55 | disposition home or self-care (01) ==
LOC: INTOOBSV 10:18 → AA 10:18 → SSU 18:02
PROVIDERS: ADMIT Orthopaedic Surgery; ATTEND Orthopaedic Surgery

== ENCOUNTER 2020-12-03 10:12 | Observation (INO) ==
[2020-12-03 11:00] LABS: ABS Basophils 0.1 10^3/ul (0-0.2); ABS Eosinophils 0.4 10^3/ul (0-0.6); ABS Lymphocytes 0.7 10^3/ul (1.0-4.8); ABS Monocytes 0.6 10^3/ul (0-0.8); ABS Neutrophils 6.5 10^3/ul (1.5-7.7); Eosinophil % 4.8 %; Hematocrit 23 % (35-47); Hemoglobin 8.1 g/dL (12.0-16.0); Lymphocyte % 8.9 %; Mean Corpuscular HGB Conc 35 g/dL (31-36); Mean Corpuscular Hemoglobin 34 pg (27-31); Mean Corpuscular Volume 97 fL (80-97); Mean Platelet Volume 7.9 fL (7.4-10.4); Platelet Count 329 10^3/uL (150-450); Red Blood Count 2.42 10^6 /uL (3.70-4.87); Red Cell Distribution Width 14 % (10-15); White Blood Count 8.3 10^3/uL (3.5-10.8)
[2020-12-03 11:06] LABS: INR 1.09 (0.86-1.15)
[2020-12-03 11:17] LABS: Albumin 3.8 g/dL (3.2-5.2); Albumin/Globulin Ratio 1.5 (1-3); Calcium 9.5 mg/dL (8.6-10.3); EGFR African American 50.3 (>60); EGFR Non-African American 41.6 (>60); Globulin 2.6 g/dL (2-4); Potassium 3.6 mmol/L (3.5-5.0); Total Bilirubin 0.9 mg/dL (0.2-1.0); Total Protein 6.4 g/dL (6.4-8.9)
[2020-12-03] MEDS ORDERED: Lactated Ringers 1000 ml BAG 1,000 ML IV ONE ×3 (14:55→20:43)
[2020-12-03 15:39] LABS: Troponin I 0.01 ng/mL (<0.03)
[2020-12-03 17:42] LABS: Troponin I 0.01 ng/mL (<0.03)
[2020-12-03 17:53] LABS: Calcium 8.7 mg/dL (8.6-10.3); EGFR African American 63.1 (>60); EGFR Non-African American 52.2 (>60); Potassium 4.2 mmol/L (3.5-5.0)
[2020-12-03 18:51] LABS: Rapid COVID-19 Molecular Undetected (Undetected)
[2020-12-04 04:44] LABS: ABS Basophils 0.1 10^3/ul (0-0.2); ABS Eosinophils 0.3 10^3/ul (0-0.6); ABS Monocytes 0.4 10^3/ul (0-0.8); ABS Neutrophils 2.5 10^3/ul (1.5-7.7); Eosinophil % 7.6 %; Hematocrit 20 % (35-47); Hemoglobin 6.7 g/dL (12.0-16.0); Mean Corpuscular HGB Conc 34 g/dL (31-36); Mean Corpuscular Hemoglobin 33 pg (27-31); Mean Corpuscular Volume 96 fL (80-97); Mean Platelet Volume 7.4 fL (7.4-10.4); Nucleated Red Blood Cells % 0.1; Platelet Count 279 10^3/uL (150-450); Red Blood Count 2.06 10^6 /uL (3.70-4.87); Red Cell Distribution Width 14 % (10-15); White Blood Count 4.4 10^3/uL (3.5-10.8)
[2020-12-04 05:06] LABS: Calcium 8.2 mg/dL (8.6-10.3); EGFR African American 61.8 (>60); EGFR Non-African American 51.1 (>60); Magnesium 1.7 mg/dL (1.9-2.7); Potassium 3.7 mmol/L (3.5-5.0)
[2020-12-04] MEDS ORDERED: Magnesium Sulfate 2 gm BAG 2 GM/50 ML BAG IVPB ONE (07:20)
[2020-12-04] MEDS: DULoxetine DR 30 mg CAP PO SCH (07:52)
[2020-12-04] MEDS ORDERED: Flu vaccine *QUAD* 2021-22* 0.5 ML SYRINGE IM ONE (09:00)
[2020-12-04] MEDS ORDERED: Al Hydrox/Mg Hydrox/Simet LIQ 30 ML UDC PO PRN (10:51)
[2020-12-04 10:53] LABS: Urine Appearance Clear; Urine Bilirubin Negative (Negative); Urine Blood Negative (Negative); Urine Color Yellow; Urine Glucose Negative (Negative); Urine Ketones Negative (Negative); Urine Nitrite Negative (Negative); Urine Protein Negative (Negative); Urine Specific Gravity 1.011 (1.002-1.030); Urine Urobilinogen Negative (Negative)
[2020-12-04] MEDS ORDERED: Aspirin EC 81 mg TAB.EC (enteric coated) PO SCH (21:00)
[2020-12-04] MEDS ORDERED: Cholecalciferol (VIT D3) 1,000 unit TAB PO SCH (21:00)
[2020-12-05 06:41] LABS: Hematocrit 24 % (35-47); Hemoglobin 8.2 g/dL (12.0-16.0)
[2020-12-05] MEDS ORDERED: Estradiol VAG CM (NF) 1 APPLIC TUBE VAGINAL SCH (09:00)
[2020-12-05] MEDS: DULoxetine DR 30 mg CAP PO SCH (09:31)
[2020-12-05 14:44] VITALS: BP 142/92
== END 2020-12-05 16:30 | disposition home or self-care (01) ==
LOC: SSU 10:12 → ED 10:12 → SSU 20:18 → SUATTDRO 21:35
PROVIDERS: ADMIT Internal Medicine; ATTEND Internal Medicine

== ENCOUNTER 2023-05-14 22:46 | Inpatient (IN) ==
[2023-05-15 00:06] LABS: ABS Basophils 0.1 10^3/uL (0.0-0.1); ABS Eosinophils 0.1 10^3/uL (0.0-0.5); ABS Lymphocytes 2.1 10^3/uL (1.0-4.8); ABS Monocytes 0.5 10^3/uL (0.0-0.9); ABS Neutrophils 4.1 10^3/uL (1.5-7.6); ABS Nucleated RBC 0.01 10^3/ul; Eosinophil % 1.1 %; Hematocrit 34.2 % (35-45); Hemoglobin 11.9 g/dL (11.5-14.3); Lymphocyte % 30.8 %; Mean Corpuscular Hemoglobin 32.7 pg (27-33); Mean Corpuscular Hgb Conc 34.8 g/dL (31-36); Mean Corpuscular Volume 93.8 fL (80-97); Mean Platelet Volume 7.4 fL (7.5-11.2); Nucleated Red Blood Cells % 0.1 %/100WBC (0.0-0.8); Platelet Count 406 10^3/uL (150-450); Red Blood Count 3.65 10^6/uL (3.63-4.92); White Blood Count 6.9 10^3/uL (3.8-11.8)
[2023-05-15 00:58] LABS: Albumin 3.4 g/dL (3.2-5.2); Albumin/Globulin Ratio 1.7 (1-3); C Reactive Protein 10.5 mg/L (<8.01); Creatinine, Serum 0.88 mg/dL (0.51-0.95); Magnesium 1.1 mg/dL (1.9-2.7); Potassium 3.3 mmol/L (3.5-5.0); Total Bilirubin 0.4 mg/dL (0.2-1.0); Total Protein 5.4 g/dL (6.4-8.9)
[2023-05-15 01:05] LABS: Urine Appearance Clear; Urine Bilirubin Negative (Negative); Urine Blood Negative (Negative); Urine Color Light-Yellow; Urine Glucose Negative (Negative); Urine Ketones 1+ (Negative); Urine Nitrite Negative (Negative); Urine Protein Negative (Negative); Urine Specific Gravity 1.016 (1.002-1.030); Urine Urobilinogen Negative (Negative); Urine pH 6.5 (5.0-8.0)
[2023-05-15 01:12] LABS: TSH Ultra Thyroid Stim Horm 1.67 mcIU/mL (0.34-5.60)
[2023-05-15 01:51] LABS: High Sensitivity Troponin 1 Hr 6 pg/mL (<15)
[2023-05-15] MEDS: Magnesium Sulf 4 GM/100 ML IV 4,000 MG/100 ML BAG IVPB ONE (02:42)
[2023-05-15] MEDS: Potassium EFFERVES 25 meq TAB PO ONE ×2 (04:07→10:25)
[2023-05-15] MEDS: Lactated Ringers 1000 ml BAG 1,000 ML IV ONE (04:30)
[2023-05-15] MEDS: Iohexol 350 (CONTRAST) 500 ML MDV IV ONE (04:31)
[2023-05-15] MEDS: NS 0.9% 1000 ml BAG 1,000 ML IV ONE (05:05)
[2023-05-15] MEDS: cefTRIAXone 1 gm/50 mL D5W 1 GM/50 ML BAG IV ONE (05:15)
[2023-05-15] MEDS: Azithromycin 500 mg/250 ml NS 500 MG/250 ML BAG IVPB ONE (05:16)
[2023-05-15] MEDS: Morphine 2 MG/ML SYRINGE IV ONE (08:04)
[2023-05-15] MEDS: Albuterol HFA INHALER 8 gm MDI INH SCH ×2 (08:07→19:15)
[2023-05-15] MEDS: Enoxaparin 40 MG/0.4 ML SYR SUBCUT SCH (08:12)
[2023-05-15 09:50] LABS: ABS Basophils 0.1 10^3/uL (0.0-0.1); ABS Lymphocytes 1.9 10^3/uL (1.0-4.8); ABS Monocytes 0.4 10^3/uL (0.0-0.9); ABS Neutrophils 5.3 10^3/uL (1.5-7.6); Eosinophil % 0.6 %; Hematocrit 34.1 % (35-45); Hemoglobin 11.8 g/dL (11.5-14.3); Lymphocyte % 24.5 %; Mean Corpuscular Hemoglobin 32.4 pg (27-33); Mean Corpuscular Hgb Conc 34.4 g/dL (31-36); Mean Corpuscular Volume 94.1 fL (80-97); Mean Platelet Volume 8.2 fL (7.5-11.2); Platelet Count 405 10^3/uL (150-450); Red Blood Count 3.63 10^6/uL (3.63-4.92); White Blood Count 7.8 10^3/uL (3.8-11.8)
[2023-05-15 10:15] LABS: Calcium 8.6 mg/dL (8.6-10.3); Creatinine, Serum 0.79 mg/dL (0.51-0.95); Potassium 3.8 mmol/L (3.5-5.0); eGFR CKD-EPI 81.9 (>60)
[2023-05-15] MEDS: Lactated Ringers 1000 ml BAG 1,000 ML IV SCH (17:56)
[2023-05-15] MEDS: Calcium Carbonate LIQ 1,250 mg/5 ml UDC PO SCH (21:23)
[2023-05-16] MEDS: cefTRIAXone 1 gm/50 mL D5W 1 GM/50 ML BAG IV SCH (04:57)
[2023-05-16] MEDS ORDERED: cefTRIAXone 1 gm/50 mL D5W 1 GM/50 ML BAG IV SCH (05:00)
[2023-05-16] MEDS: Azithromycin 500 mg/250 ml NS 500 MG/250 ML BAG IVPB SCH (05:34)
[2023-05-16 06:20] LABS: ABS Basophils 0.1 10^3/uL (0.0-0.1); ABS Eosinophils 0.1 10^3/uL (0.0-0.5); ABS Lymphocytes 2.4 10^3/uL (1.0-4.8); ABS Monocytes 0.4 10^3/uL (0.0-0.9); ABS Neutrophils 4.7 10^3/uL (1.5-7.6); Eosinophil % 1.8 %; Hemoglobin 12.2 g/dL (11.5-14.3); Lymphocyte % 31.3 %; Mean Corpuscular Hemoglobin 32.1 pg (27-33); Mean Corpuscular Volume 94.5 fL (80-97); Mean Platelet Volume 7.9 fL (7.5-11.2); Platelet Count 442 10^3/uL (150-450); Red Blood Count 3.81 10^6/uL (3.63-4.92); Red Cell Distribution Width 12.9 % (12-17); White Blood Count 7.7 10^3/uL (3.8-11.8)
[2023-05-16 06:39] LABS: C Reactive Protein 6.96 mg/L (<8.01); Calcium 9.5 mg/dL (8.6-10.3); Creatinine, Serum 0.8 mg/dL (0.51-0.95); Magnesium 1.5 mg/dL (1.9-2.7); Phosphorus 3.5 mg/dL (2.5-5.0); eGFR CKD-EPI 80.7 (>60)
[2023-05-16] MEDS: NON FORMULARY MED (Zinc Acetate 50 mg (zinc) Capsule) PO SCH (07:00)
[2023-05-16] MEDS: Magnesium Sulf 4 GM/100 ML IV 4,000 MG/100 ML BAG IVPB ONE (10:55)
[2023-05-16] MEDS: Lactated Ringers 1000 ml BAG 1,000 ML IV SCH (18:24)
[2023-05-17 07:53] LABS: ABS Basophils 0.1 10^3/uL (0.0-0.1); ABS Eosinophils 0.2 10^3/uL (0.0-0.5); ABS Monocytes 0.5 10^3/uL (0.0-0.9); ABS Neutrophils 4.7 10^3/uL (1.5-7.6); ABS Nucleated RBC 0.01 10^3/ul; Eosinophil % 2.2 %; Hemoglobin 11.1 g/dL (11.5-14.3); Lymphocyte % 26.4 %; Mean Corpuscular Hemoglobin 32.7 pg (27-33); Mean Corpuscular Hgb Conc 34.6 g/dL (31-36); Mean Corpuscular Volume 94.5 fL (80-97); Nucleated Red Blood Cells % 0.2 %/100WBC (0.0-0.8); Platelet Count 358 10^3/uL (150-450); Red Blood Count 3.39 10^6/uL (3.63-4.92); Red Cell Distribution Width 12.9 % (12-17); White Blood Count 7.4 10^3/uL (3.8-11.8)
[2023-05-17 08:10] LABS: Calcium 9.2 mg/dL (8.6-10.3); Creatinine, Serum 0.78 mg/dL (0.51-0.95); Magnesium 1.7 mg/dL (1.9-2.7); Potassium 3.7 mmol/L (3.5-5.0); eGFR CKD-EPI 83.2 (>60)
[2023-05-17] MEDS: Potassium Chlor 20 meq TAB.ER PO ONE (13:38)
[2023-05-17] MEDS: Magnesium Sulfate IV 1GM/100ML 1 GM/100 ML BAG IV ONE (13:39)
[2023-05-17] MEDS: Albuterol HFA INHALER 8 gm MDI INH SCH (19:18)
[2023-05-18 06:29] LABS: ABS Basophils 0.1 10^3/uL (0.0-0.1); ABS Eosinophils 0.2 10^3/uL (0.0-0.5); ABS Lymphocytes 1.9 10^3/uL (1.0-4.8); ABS Monocytes 0.4 10^3/uL (0.0-0.9); ABS Neutrophils 3.8 10^3/uL (1.5-7.6); Eosinophil % 2.7 %; Hemoglobin 11.5 g/dL (11.5-14.3); Lymphocyte % 29.6 %; Mean Corpuscular Hgb Conc 34.8 g/dL (31-36); Mean Corpuscular Volume 94.8 fL (80-97); Mean Platelet Volume 7.7 fL (7.5-11.2); Platelet Count 356 10^3/uL (150-450); Red Blood Count 3.48 10^6/uL (3.63-4.92); Red Cell Distribution Width 12.8 % (12-17); White Blood Count 6.3 10^3/uL (3.8-11.8)
[2023-05-18 06:46] LABS: Creatinine, Serum 0.76 mg/dL (0.51-0.95); Magnesium 1.5 mg/dL (1.9-2.7); Potassium 3.8 mmol/L (3.5-5.0); eGFR CKD-EPI 85.8 (>60)
[2023-05-18] MEDS: Magnesium Sulfate 2 gm BAG 2 GM/50 ML BAG IVPB ONE (09:29)
[2023-05-18] MEDS: Magnesium Sulfate IV 1GM/100ML 1 GM/100 ML BAG IV ONE (11:10)
[2023-05-19 06:43] LABS: Calcium 8.7 mg/dL (8.6-10.3); Creatinine, Serum 0.71 mg/dL (0.51-0.95); Magnesium 1.6 mg/dL (1.9-2.7); Potassium 3.6 mmol/L (3.5-5.0); eGFR CKD-EPI 93.1 (>60)
[2023-05-19] MEDS: Magnesium Sulfate 2 gm BAG 2 GM/50 ML BAG IVPB ONE (12:08)
[2023-05-19] MEDS: Potassium Chlor 20 meq TAB.ER PO ONE (12:08)
[2023-05-19] MEDS: NS 0.9% 1000 ml BAG 1,000 ML IV SCH (12:15)
[2023-05-20 06:10] LABS: Hematocrit 30.7 % (35-45); Hemoglobin 10.6 g/dL (11.5-14.3); Mean Corpuscular Hemoglobin 32.7 pg (27-33); Mean Corpuscular Hgb Conc 34.6 g/dL (31-36); Mean Corpuscular Volume 94.4 fL (80-97); Mean Platelet Volume 7.9 fL (7.5-11.2); Platelet Count 337 10^3/uL (150-450); Red Blood Count 3.25 10^6/uL (3.63-4.92); Red Cell Distribution Width 12.8 % (12-17); White Blood Count 5.2 10^3/uL (3.8-11.8)
[2023-05-20 06:59] LABS: Calcium 8.8 mg/dL (8.6-10.3); Creatinine, Serum 0.72 mg/dL (0.51-0.95); Magnesium 1.6 mg/dL (1.9-2.7); Potassium 4.3 mmol/L (3.5-5.0); eGFR CKD-EPI 91.6 (>60)
[2023-05-20] MEDS: Magnesium Sulfate 2 gm BAG 2 GM/50 ML BAG IVPB ONE (09:23)
[2023-05-20 09:55] VITALS: BP 147/84
== END 2023-05-20 13:53 | disposition home or self-care (01) | DRG 195 ==
LOC: ED 22:46 → EDHOLD 22:46 → SUATTDRO 05-15 04:31 → MEDTELE 05-15 07:33
PROVIDERS: ADMIT Internal Medicine; ATTEND Internal Medicine

== ENCOUNTER 2023-11-01 22:07 | Observation (INO) ==
[2023-11-01 23:06] LABS: ABS Basophils 0.1 10^3/uL (0.0-0.1); ABS Eosinophils 0.1 10^3/uL (0.0-0.5); ABS Lymphocytes 2.7 10^3/uL (1.0-4.8); ABS Monocytes 0.7 10^3/uL (0.0-0.9); ABS Neutrophils 7.9 10^3/uL (1.5-7.6); Eosinophil % 0.5 %; Hematocrit 37.9 % (35-45); Hemoglobin 12.6 g/dL (11.5-14.3); Lymphocyte % 23.7 %; Mean Corpuscular Hemoglobin 33.3 pg (27-33); Mean Corpuscular Hgb Conc 33.4 g/dL (31-36); Platelet Count 277 10^3/uL (150-450); Red Blood Count 3.79 10^6/uL (3.63-4.92); Red Cell Distribution Width 14.9 % (12-17); White Blood Count 11.5 10^3/uL (3.8-11.8)
[2023-11-01 23:48] LABS: ALT 12 U/L (7-52); AST 24 U/L (13-39); Acetaminophen < 15 mcg/mL; Albumin 4.2 g/dL (3.2-5.2); Albumin/Globulin Ratio 1.8 (1-3); Alcohol, S 37 mg/dL (<13); Alkaline Phosphatase 83 U/L (35-149); Anion Gap 12 mmol/L (2-16); Blood Urea Nitrogen 29 mg/dL (6-24); CO2 Carbon Dioxide 23 mmol/L (22-32); Calcium 9.7 mg/dL (8.6-10.3); Chloride 105 mmol/L (101-111); Creatinine, Serum 1.81 mg/dL (0.51-0.95); Globulin 2.3 g/dL (2-4); Glucose 115 mg/dL (70-100); Potassium 3.5 mmol/L (3.5-5.0); Salicylate < 2.50 mg/dL (<30); Sodium 140 mmol/L (135-145); Total Bilirubin 0.3 mg/dL (0.2-1.0); Total Protein 6.5 g/dL (6.4-8.9); eGFR CKD-EPI 30.3 (>60)
[2023-11-02 01:15] LABS: High Sensitivity Troponin 1 Hr 42 pg/mL (<15)
[2023-11-02] MEDS: Lactated Ringers 1000 ml BAG 1,000 ML IV SCH (01:20)
[2023-11-02] MEDS ORDERED: Albuterol HFA INHALER 8 gm MDI INH PRN (04:11)
[2023-11-02] MEDS ORDERED: LORazepam 2 mg VIAL 1 ml IV PUSH SCH (05:00)
[2023-11-02] MEDS: Multivitamins/Minerals TAB PO SCH (06:11)
[2023-11-02] MEDS: Enoxaparin 30 MG/0.3 ML SYR SUBCUT SCH (06:12)
[2023-11-02] MEDS: Lactated Ringers 1000 ml BAG 1,000 ML IV ONE (06:14)
[2023-11-02 06:54] LABS: Calcium 8.3 mg/dL (8.6-10.3); Creatinine, Serum 1.21 mg/dL (0.51-0.95); Potassium 3.9 mmol/L (3.5-5.0); eGFR CKD-EPI 49.1 (>60)
[2023-11-02 07:50] LABS: Urine Appearance Turbid; Urine Bilirubin Negative (Negative); Urine Blood Trace (Negative); Urine Color Yellow; Urine Glucose Negative (Negative); Urine Ketones Negative (Negative); Urine Nitrite Negative (Negative); Urine Protein 1+ (>=30 mg/dL) (Negative); Urine Specific Gravity 1.017 (1.002-1.030); Urine Urobilinogen Negative (Negative)
[2023-11-02 07:57] LABS: Urine Bacteria Absent /HPF (Absent); Urine Red Blood Cell 1+(3-5/hpf) /HPF (0-Trace); Urine Squamous Epithelial Cell Present /HPF (Absent); Urine White Blood Cell 3+(>20/hpf) /HPF (0-Trace)
[2023-11-02 08:15] LABS: Urine Benzodiazepine Screen None Detected (None Detect); Urine Cannabinoids Screen None Detected (None Detect); Urine Opiates Screen None Detected (None Detect)
[2023-11-02] MEDS: Tiotropium Brom/Olodaterol MDI (ACUTE) INH SCH (09:20)
[2023-11-02 12:32] LABS: High Sensitivity Troponin 1 Hr 156 pg/mL (<15)
[2023-11-02 14:26] LABS: High Sensitivity Troponin 3 Hr 138 pg/mL (<15)
[2023-11-03] MEDS: Sulfur Hexaflouride MICROSPHR 25 MG VIAL IV ONE (01:12)
[2023-11-03 07:22] LABS: Calcium 8.5 mg/dL (8.6-10.3); Creatinine, Serum 0.83 mg/dL (0.51-0.95); Magnesium 1.4 mg/dL (1.9-2.7); eGFR CKD-EPI 77.2 (>60)
[2023-11-03] MEDS: Magnesium Sulfate 2 gm BAG 2 GM/50 ML BAG IVPB ONE (08:59)
[2023-11-03] MEDS: Al Hydrox/Mg Hydrox/Simet LIQ 30 ML UDC PO ONE (09:00)
[2023-11-03] MEDS: Magnesium Sulfate IV 1GM/100ML 1 GM/100 ML BAG IV ONE (10:20)
[2023-11-03] MEDS: Lactated Ringers 1000 ml BAG 1,000 ML IV SCH (11:01)
[2023-11-03 13:59] VITALS: BP 133/78
== END 2023-11-03 16:14 | disposition home or self-care (01) ==
LOC: EDHOLD 22:07 → ED 22:07 → SUATTDRO 11-02 03:29 → MEDTELE 11-02 17:58
PROVIDERS: ADMIT Hospitalist; ATTEND Student in an Organized Health Care Education/Training Program